=== PATIENT | female | born 1930 | race Caucasian/White ===

== ENCOUNTER 2016-07-08 07:26 | Emergency (ER) | payer MEDICARE, BC ==
[2012-12-16 14:40] VITALS: BMI 30.2
[~2016-07-08 07:26] MED LIST: ASPIRIN EC81 MG PO; DOK250 MG PO; PERCOCET 5/3251 TA1 PO; PRILOSEC20 MG
[2016-07-08 09:09] LABS: BASOPHILS 0.5 % (0.0-2.0); EOSINOPHILS 2.9 % (0-7); HEMATOCRIT 39.8 % (36.0-48.0); HEMOGLOBIN 13.1 g/dL (12-16); IMMATURE GRANULOCYTES 0.2 % (0-5); LYMPHOCYTES 21.4 % (15-50); MCH 30.8 pg (26.0-34.0); MCHC 32.9 g/dL (31.0-37.0); MCV 93.4 fL (80.0-100.0); MEAN PLATELET VOLUME 11.2 fL (7.4-10.4); MONOCYTES 7.3 % (2-11); NEUTROPHILS 67.7 % (40-80); RBC 4.26 10x6/uL (4.00-5.40); RDW 13.9 % (11.5-14.5); WBC 6.6 10x3/uL (4.8-10.8)
[2016-07-08 09:27] LABS: ALBUMIN 3.5 g/dL (3.4-5.0); ANION GAP 12.5 mmol/L (8-16); BILIRUBIN - TOTAL 0.29 mg/dL (0.2-1.3); CALCIUM 9.3 mg/dL (8.5-10.1); POTASSIUM - SERUM 4.5 mmol/L (3.5-5.1); PROTEIN - SERUM 7.2 g/dL (6.4-8.2)
[2016-07-08 09:32] LABS: PLATELET COUNT 156 10x3/uL (130-400)
== END 2016-07-08 11:51 | disposition home or self-care (01) ==
LOC: D.ER 07:26
PROVIDERS: Emergency Medicine
DX: I74.8 Embolism and thrombosis of other arteries (principal)

== ENCOUNTER → 2016-07-12 08:54 | Outpatient (CLI) | payer MEDICARE, BC ==
[2012-12-16 14:40] VITALS: BMI 30.2
== END | disposition home or self-care (01) ==
LOC: D.CT 08:54
DX: I73.9 Peripheral vascular disease, unspecified (principal)

== ENCOUNTER → 2016-07-15 14:36 | Outpatient (CLI) | payer MEDICARE, BC ==
[2012-12-16 14:40] VITALS: BMI 30.2
== END | disposition home or self-care (01) ==
LOC: D.CT 14:36
DX: R91.8 Other nonspecific abnormal finding of lung field (principal)

== ENCOUNTER 2016-07-23 07:21 | Outpatient (CLI) | payer MEDICARE, BC ==
[~2016-07-23] VITALS: Ht 157.5 cm; Wt 77.3 kg
[2016-07-23 08:26] LABS: BASOPHILS 0.5 % (0-2); EOSINOPHILS 3.3 % (0-7); HEMATOCRIT 41.3 % (36.0-48.0); HEMOGLOBIN 13.5 g/dL (12-16); IMMATURE GRANULOCYTES 0.2 % (0-5); LYMPHOCYTES 23.6 % (15-50); MCH 30.5 pg (26.0-34.0); MCHC 32.7 g/dL (31.0-37.0); MCV 93.2 fL (80.0-100.0); MEAN PLATELET VOLUME 11.5 fL (7.4-10.4); NEUTROPHILS 62.4 % (40-80); PLATELET COUNT 197 10x3/uL (130-400); RBC 4.43 10x6/uL (4.00-5.40); RDW 13.9 % (11.5-14.5)
[2016-07-23 08:38] LABS: APTT 24.8 SECONDS (22.8-39.4); INR 0.96 (0.85-1.17); PROTIME 12.7 SECONDS (11.6-15.0)
[2016-07-23 08:42] VITALS: BP 145/76; Ht 157.5 cm; Wt 77.3 kg
[2016-07-23 08:43] LABS: ANION GAP 11.6 mmol/L (8-16); CALCIUM 9.9 mg/dL (8.5-10.1); CARBON DIOXIDE 28.5 mmol/L (21.0-32.0); POTASSIUM - SERUM 4.1 mmol/L (3.5-5.1)
[2016-07-23] MEDS ORDERED: BUMETANIDE0.5 MG PO (08:52)
[2016-07-23] MEDS ORDERED: NEURONTIN 300300 MG PO (08:54)
[2016-07-23] MEDS ORDERED: MOBIC7.5 MG PO (08:56)
--- NOTE | 2016-07-23 12:34 | NUR ---
1200 RETURNED TO 2509 BY BED, SEE POST PROCEDURE VITAL SIGNS CHECKLIST FOR VITAL SIGNS.
--- NOTE | 2016-07-23 14:19 | NUR ---
1350 CXR DONE 1410 CXR REPORT GIVEN NO PNEUMOTHORAX, ISMAEL ROUNDS, GIVES POST INSTRUCTIONS, OKAYS RELEASE AT 1500.
== END 2016-07-23 15:15 | disposition home or self-care (01) ==
LOC: D.OPS 07:21
PROVIDERS: General Practice
DX: C34.31 Malignant neoplasm of lower lobe, right bronchus or lung (principal)

== ENCOUNTER → 2016-08-15 10:49 | Outpatient (CLI) | payer MEDICARE, BC ==
[2016-07-23 08:42] VITALS: BMI 31.1
[~2016-08-15 10:49] MED LIST changes: +BUMETANIDE0.5 MG PO; +MOBIC7.5 MG PO; +NEURONTIN 300300 MG PO
== END | disposition home or self-care (01) ==
LOC: D.RT 10:49
DX: J44.9 Chronic obstructive pulmonary disease, unspecified (principal)

== ENCOUNTER 2016-09-17 05:00 | Inpatient (IN) | payer MEDICARE, BC ==
--- NOTE | 2016-09-14 12:08 | HP ---
PATIENT: HARVINDER HALL MEDICAL RECORD: [id number] ACCOUNT: [id number] LOCATION:[facility] : [birth year] ADMISSION DATE: 09/17/16 HISTORY AND PHYSICAL EXAMINATION HARVINDER Saenz (86yo, F) ID# [id number]. Date/Time09/11/2016 01:92LHRRD30/18/192[facility] Dept.[facility]_[place] [facility] ClinicProviderEDNATHAN SINCLAIR MDInsuranceMed Primary: [place] (MEDICARE) Insurance # : [id number] PCP : LYNDSEY BARTON Referring Provider Name : LYNDSEY BARTON Employer Name : RETIRED Med Secondary: [place] (MEDICARE SUPPLEMENT) Insurance # : [id number] Policy/Group # : [id number] PCP : LYNDSEY BARTON Referring Provider Name : LYNDSEY BARTON Employer Name : RETIRED Prescription: ARGSDIR - Member is eligible. Chief Complaint Followup: Mass of right lower lobe of lung discuss surgery options Patient's Care Team Primary Care Provider (): LYNDSEY BARTON: [address], [place] [address], , Referring Provider (): LYNDSEY BARTON: [address], [place] [address], , Patient's Pharmacies [facility] (ERX): [phone] [place] [place] [address], , Vitals BP:150/70 sitting R arm 09/11/2016 12:39 pmHR:100R/R 09/11/2016 12:39 pmHt:5 ft 2 in 09/11/2016 12:36 pmWt:170 lbs 09/11/2016 12:38 pmBMI:31.1 09/11/2016 12:38 pmAllergies Allergies not reviewed (last reviewed 08/12/2016) NKDAMedications Medications not reviewed (last reviewed 08/12/2016) Aspir-Low 81 mg tablet,delayed release Take 1 tablet(s) every day by oral route.12/29/12 enteredPaola Sextonbenzonatate 100 mg /18/16 [facility] Westemazebumetanide 0.5 mg osdtzi57/05/17 filledB[facility] WestemazecefUROXime axetil 500 mg /18/16 filledB[facility] WestemazeFerretts 325 mg (106 mg iron) /27/14 filledB[facility] Westemazegabapentin 300 mg ftohnrm97/05/17 filledB[facility] Westemazelisinopril 10 mg dphpki80/20/14 filledB[facility] Westemazemeloxicam 7.5 mg yeyphb30/05/17 filledB[facility] WestemazetraMADol 50 mg xkapgv73/23/16 filledB[facility] WestemazeProblems Reviewed Problems Mass of right lower lobe of lung - Onset: 07/16/2016 Closed fracture of proximal humerus, anatomical neck Closed fracture proximal humerus, greater tuberosity Atherosclerosis of arteries of the extremities - Onset: 07/09/2016 Family History Discussed Family History HISTORY AND PHYSICAL [id number] HARVINDER HALL Non-contributory.Mother- Malignant tumor of colonSister- Malignant neoplastic diseaseSocial History Discussed Social History Cardiology Smoking Status: Former smoker Non-smoker High blood pressure: Y Alcohol intake: None Occupation: Retired Marital status: Is blood transfusion acceptable in an emergency?: Y Surgical History Surgical History not reviewed (last reviewed 08/12/2016) Other - choleystectomy Total shoulder replacement - 12/16/2012 none [employer] History (not configured) Past Medical History Discussed Past Medical History Cancer: Y - RLL NSCLC Cold feet and legs: Y GERD: Y Pain in legs when walking: Y Peripheral Vascular Disease (PVD): Y Swelling of Ankles, Feet or Hands: Y Documents for Discussion N/A Screening None recorded. HPI Dyspnea Reported by patient. Quality: dyspnea Severity: mild Onset/Timing: daily Context: with activity Associated Symptoms: coughing up sputum squamous cell carcinoma right lower lobe ROS Patient reports dry eyes but reports no irritation and no vision change. She reports nose/sinus problems but reports no frequent nosebleeds. She reports shortness of breath when walking and shortness of breath when lying down but reports no chest pain, no arm pain on exertion, no palpitations, and no known heart murmur. She reports shortness of breath but reports no cough, no wheezing, and no coughing up blood. She reports urinary loss of control but reports no d ifficulty urinating, no hematuria, and no increased frequency. She reports no fever, no night sweats, no significant weight gain, no significant weight loss, and no exercise intolerance. She reports no difficulty hearing and no ear pain. She reports no so r e throat, no bleeding gums, no snoring, no dry mouth, no mouth ulcers, no oral abnormalities, and no teeth problems. She reports no jugular vein distension and no swollen glands. She reports no abdominal pain, no vomiting, normal appetite, no diarrhea, no t vomiting blood, no nausea, and no constipation. She reports no HISTORY AND PHYSICAL [id number] HALL,HARVINDER muscle aches, no muscle weakness, no arthralgias/joint pain, no back pain, and no swelling in the extremities. She reports no abnormal mole, no jaundice, and no rashes. She reports no loss of consciousness, no weakness, no numbness, no seizures, no dizziness, and no headaches. She reports no depression, no sleep disturbances, feeling safe in relationship, and no alcohol abuse. She reports no fatigue. She reports no swollen glands and no bruisi ng. She reports no runny nose, no sinus pressure, no itching, no hives, and no frequent sneezing. ROS as noted in the HPI Physical Exam Patient is an 86-year-old female. Constitutional: General Appearance well nourished and developed and healthy-appearing. Level of Distress NAD. Ambulation ambulating normally. Cardiovascular: Apical Impulse not displaced or no thrill. Heart Auscultation normal s1 and s2; no murmurs, rubs, or gallops; and RRR. Arterial Pulses no abdominal aorta bruits, femoral bruits, or popliteal bruits; popliteal diminished (on the right) and dorsalis pedis diminished (on the right); and 2+ bilateral, carotid 2+ bilateral, and femoral 2+ bilateral. Edema no edema or varicosities. Lungs: Repiratory Effort no dyspnea. Percussion no hyperresonance or dullness or flatness. Auscultation no wheezing, rhonchi, or rales / crackles and breathing sounds normal, good air movement, and CTA except as noted. Abdomen: Bowl Sounds normal. Inspection and Palpation no tenderness, guarding, cathleen s, or rebound tenderness and soft and non-distended. Liver non-tender and no hepatomegaly. Spleen non-tender and no splenomegaly. Hernia none palpable. Musculoskeletal System: Gait And Stance normal gait and stance and wide-based. Digits and Nails normal nails and no cyanosis. Joints, Bones, and Muscles limited ROM. Neurologic: Cranial Nerves grossly intact. Reflexes DTRs 2+ bilaterally throughout. Sensation abnormal (numbness in the forefeet bilaterally Numbness in the fingers both hands all digits ). Lymph Nodes: Lymph Nodes no cervical LAD, supraclavicular LAD, axillary LAD, or inguinal LAD. Eyes: Lids and Conjunctivae no discharge or pallor and non-injected. Pupils PERRLA. Cornea grossly intact. EOM EOMI. Lens clear. Sclera non-icteric. Neck: Neck no masses, enlarged lymph nodes, or carotid bruits and supple and trachea midline. Thyroid no enlargement or nodules and non-tender. Skin: Inspection and Palpation no rash, lesions, ulcers, jaundice, or abnormal nevi. Assessment / Plan non-small cell carcinoma right lower lobe 1. Mass of right lower lobe of lung R91.8: Other nonspecific abnormal finding of lung field 2. Atherosclerosis of arteries of the extremities I70.209: Unspecified atherosclerosis of [place] arteries of extremities, unspecified extremity HISTORY AND PHYSICAL [id number] ISABELHARVINDER Discussion Notes Ms. Hall has seen Dr. Patel, Dr. cheng, Dr. Paige. She would like her tumor resected and understands the high risk of the procedure. I tried to have her considering chemotherapy however she is adamant and wants to resecte the tumor in spite of the risk.She does not want mediastinoscopy. I have discussed her disease process with her and her family in detail as well as the alternative methods of treatment. We discussed right lower lobe resection and the expected benefits and risks which include bleeding, infection, stroke, loss of limb, and , and the imponderables. She understands all of the above and wishes to proceed with surgical resection of her right lung carcinoma. We will call for scheduled surgery ARON SINCLAIR MD at 1208 CC: [id number] DICTATION DATE: 09/11/16 1330 SECURITY TECHNICIAN: MARCOS 09/11/16 1418 PRE IN [facility] [address] [id number]
[2016-09-16 10:50] LABS: HEMATOCRIT 39.1 % (36.0-48.0); HEMOGLOBIN 12.6 g/dL (12-16); MCH 30.5 pg (26.0-34.0); MCHC 32.2 g/dL (31.0-37.0); MCV 94.7 fL (80.0-100.0); MEAN PLATELET VOLUME 11.3 fL (7.4-10.4); RBC 4.13 10x6/uL (4.00-5.40); RDW 14.2 % (11.5-14.5); WBC 6.2 10x3/uL (4.8-10.8)
[2016-09-16 10:57] LABS: APPEARANCE CLEAR (CLEAR); BILIRUBIN NEGATIVE (NEGATIVE); COLOR YELLOW (YELLOW); GLUCOSE NEGATIVE (NEGATIVE); KETONE NEGATIVE (NEGATIVE); LEUKOCYTE ESTERASE NEGATIVE (NEGATIVE); NITRITE NEGATIVE (NEGATIVE); PROTEIN NEGATIVE (NEGATIVE); SPECIFIC GRAVITY 1.015 (1.005-1.020); UROBILINOGEN NORMAL (NORMAL)
[2016-09-16 10:58] LABS: BACTERIA FEW /hpf (NONE SEEN); EPITHELIAL CELLS 0-5 /hpf (0-5); MUCUS <1+ /lpf (NONE SEEN); RED CELLS - URINE 0-5 /hpf (0-5); WHITE CELLS - URINE 0-5 /hpf (0-5)
[2016-09-16 11:01] LABS: APTT 23.2 SECONDS (22.8-39.4); INR 0.93 (0.85-1.17); PROTIME 12.3 SECONDS (11.6-15.0)
[2016-09-16 11:07] LABS: ALBUMIN 3.5 g/dL (3.4-5.0); ANION GAP 10.3 mmol/L (8-16); BILIRUBIN - TOTAL 0.29 mg/dL (0.2-1.3); CALCIUM 9.5 mg/dL (8.5-10.1); CARBON DIOXIDE 28.7 mmol/L (21.0-32.0); PROTEIN - SERUM 7.1 g/dL (6.4-8.2)
[2016-09-17] VITALS (49 sets, daily range): BP systolic 97–143; BP diastolic 42–95; BMI 30.4
[~2016-09-17] VITALS: Ht 157.5 cm; Wt 85.6 kg
--- NOTE | 2016-09-17 12:15 | NUR ---
REC'D TO CVO2 FROM OR. ATTACHED TO ICU EQUIPMENT UPON ARRIVAL. 10L O2 VIA SIMPLE MASK, O2 SAT 98%. RIGHT DOUBLE LUMEN SUBCLAVIAN IN PLACE WITH GTTS INFUSING, SEE IV DRIPS FLOWSHEET. LEFT RADIAL ART LINE IN PLACE WITH WRIST PROTECTOR, ALL LINES FLUSHED AT ZEROED. FENTANYL/BUPIVICAINE EPIDURAL TO MID UPPER BACK RUNNIN AT 7ML/HR. RIGHT LATERAL CHEST INCISION NOTED, DRSG CDI. RIGHT LATER CHEST TUBES X2 WITH BLOODY DRAINAGE. BOTH ANTERIOR AND POSTERIOR CHEST TUBES NOTED TO HAVE LEAKS. CRITICORE BILLINGSLEY CATHETER IN PLACE DRAINING CLEAR YELLOW URINE. SCDS IN PLACE PER ORDERS. VITAL SIGNS STABLE. WILL MONITOR CLOSELY.
--- NOTE | 2016-09-17 12:45 | NUR ---
FAMILY AT BEDSIDE. UPDATE GIVEN PER DR. SINCLAIR.
--- NOTE | 2016-09-17 14:06 | NUR ---
RESTING QUIETLY IN BED. 6L NC, NO RESP DISTRESS NOTED. NO C/O PAIN AT THIS TIME. WILL CONTINUE TO MONITOR CLOSELY.
--- NOTE | 2016-09-17 19:00 | NUR ---
rEPORT RECEIVED AND ASSESSMENT COMPLETED. SEE FLOWSHEET FOR FULL DETAILS. PT IS A RIGHT MIDDLE AND LOWER LOBECTOMY. ANTERIOR AND POSTERIOR CHEST TUBES PRESENT IN RIGHT LATERAL CHEST. LEAK PRESENT IN BOTH TUBES. NO OUTPUT SINCE LAST CHECKED BY DAY SHIFT. BILLINGSLEY IN PLACE. TEMP 36.0 DEGREES AT THIS TIME. BEAR HUGGER APPLIED. LUNG SOUNDS CTA IN UPPER LEFT LOBE, AND SUCTION FROM CHEST TUBES HEARD IN RIGHT UPPER. DIMMINISHED IN LEFT LOWER. PT IS ON A DOPAMINE DRIP SET TO BE WEANED OFF. B/P CURRENTLY 110/52 AND HR IS 72. VSS. WILL CONTINUE TO MONITOR THROUGHOUT SHIFT
--- NOTE | 2016-09-17 19:00 | NUR ---
REPORT RECEIVED AND ASSESSMENT COMPLETED. PT IS A RIGHT MIDDLE AND LOWER LOBECTOMY. ANTERIOR AND POSTERIOR CHEST TUBES PRESENT ON RIGHT LATERAL CHEST. LEAK PRESENT IN BOTH TUBES. NO OUTPUT FOR [address] TEMP 36.0. BEAR HUGGER APPLIED. AT THIS TIME. LUNG SOUNDS CTA IN UPPER LOBES. DIMINISHED IN LEFT LOWER. SUCTION FROM CHEST TUBES HEARD IN RIGHT LOBES. PT IS ON A DOPAMINE DRIP SET TO BE WEANED OFF. B/P CURRENTLY 110/52, AND HR IS 73. ALL VITAL SIGNS STABLE. WILL CONTINUE TO MONITOR THROUGHOUT SHIFT.
--- NOTE | 2016-09-17 21:00 | NUR ---
PT TEMP 36.7 AT THIS TIME. NO OTHER CHANGES IN STATUS TO REPORT. PT STILL DENIES ANY DISCOMFORT FROM PROCEDURE. VSS. WILL MONITOR
--- NOTE | 2016-09-17 23:00 | NUR ---
REASSESSMENT COMPLETED. SEE FLOWSHEET FOR FULL DETAILS. PT HAS BEEN STARTED ON A DHIRAJ DRIP AND IT HAS BEEN TITRATED DOWN TO 0.4 MCG/KG/MIN. B/P NOW AT 104/42. WILL CONTINUE TO MONITOR AND MAKE ADJUSTMENTS NEEDED. TEMP NOW AT 37.2. BEAR HUGGER TURNED OFF AT THIS TIME.
[2016-09-18] VITALS (96 sets, daily range): BP systolic 95–148; BP diastolic 33–80; Ht 157.5 cm; Wt 85.6 kg
--- NOTE | 2016-09-18 01:00 | NUR ---
NO CHANGES IN STATUS AT THIS TIME. VSS. PT SLEEPING IN ROOM BED IN LOW POSITION. CALL LIGHT IN REACH. WILL CONTINUE TO MONITOR.
--- NOTE | 2016-09-18 03:00 | NUR ---
REASSESSMENT COMPLETED. SEE FLOWSHEET FOR FULL DETAILS. DOPAMINE DRIP HAS BEEN WEANED OFF SUCCESSFULLY; HOWEVER, DHIRAJ DRIP STILL RUNNING AT 0.5 MCG/KG/MIN. B/P IS 108/48. WILL CONTINUE TO MONITOR.
--- NOTE | 2016-09-18 04:56 | NUR ---
PT STATES THAT SHE DOES NOT REMEMBER UNDERGOING HER OPERATION AT THIS TIME. NO OTHER SIGNS OF CONFUSION PRESENT.
[2016-09-18 06:26] LABS: ANION GAP 12.6 mmol/L (8-16); BILIRUBIN - TOTAL 0.4 mg/dL (0.2-1.3); CALCIUM 8.2 mg/dL (8.5-10.1); CARBON DIOXIDE 24.8 mmol/L (21.0-32.0); CREATININE - SERUM 0.8 mg/dL (0.6-1.3); POTASSIUM - SERUM 4.4 mmol/L (3.5-5.1); PROTEIN - SERUM 6.1 g/dL (6.4-8.2)
[2016-09-18 06:30] LABS: ALBUMIN 2.6 g/dL (3.4-5.0)
--- NOTE | 2016-09-18 07:00 | NUR ---
ASSESSMENT COMPLETE PER FLOW SHEET. RESTING IN BED. VSS. NO NEEDS VOICED.
[2016-09-18 07:55] LABS: HEMATOCRIT 33.8 % (36.0-48.0); HEMOGLOBIN 11.1 g/dL (12-16); MCH 30.9 pg (26.0-34.0); MCHC 32.8 g/dL (31.0-37.0); MCV 94.2 fL (80.0-100.0); RBC 3.59 10x6/uL (4.00-5.40); RDW 14.4 % (11.5-14.5); WBC 15.3 10x3/uL (4.8-10.8)
--- NOTE | 2016-09-18 08:05 | NUR ---
DR. SINCLAIR AT BEDSIDE. NO NEW ORDERS REC'D.
--- NOTE | 2016-09-18 09:36 | NUR ---
AM MEDICATIONS GIVEN PER MAR WITHOUT PROBLEM. FAMILY AT BEDSIDE. NO NEEDS VOICED. NO C/O PAIN. WILL CONTINUE TO MONITOR.
--- NOTE | 2016-09-18 11:00 | NUR ---
REASSESSMENT COMPLETE PER FLOW SHEET. NO CHANGES NOTED.
--- NOTE | 2016-09-18 12:20 | NUR ---
* Is the patient Alert and Oriented? Yes 0 * How many steps to enter\exit or inside your home? 1 0 * PCP Dr. Mitul Irving 0 * Pharmacy [facility] on [address] * Preadmission Environment Home Alone 0 * ADLs Independent 0 * List name and contact numbers for known caregivers / representatives who currently or will assist patient after discharge: Sister Modesta Dobson [phone] 0 * Can the patient safely return to the preadmission environment? Yes 0 * Has this patient been hospitalized within the prior 30 days at any hospital? No 09/18/2016 12:20 DCP: Discharge Planning Patient Name: HARVINDER HALL Admission Status: Elective Accout number: [id number] Admission Date: 09-17-2016 : 1928 Admission Diagnosis: Attending: WENDI Current LOS: 1 Anticipated DC Date: 09-24-2016 Planned Disposition: Home Primary Insurance: MEDICARE A & B Discharge Planning Comments: CM met with patient to assess dc plans/needs. Patient states she lives alone and is independent with all ADL's & AIDL's. She still drives on occasion. She denies using any assistive devices for mobility and denies ever having home health services. At discharge, she plans to return home. She does not think she will need any services at DC at this time. CM will follow and assist with any DC needs. Public Health Administrator: Amy Brock
--- NOTE | 2016-09-18 15:00 | NUR ---
REASSESSMENT COMPLETE PER FLOW SHEET. NO CHANGES NOTED. VSS.
--- NOTE | 2016-09-18 17:20 | NUR ---
SYSTOLIC BP IN THE 80s. ANESTHESIA CALLED TO LOWER EPIDURAL RATE.
--- NOTE | 2016-09-18 17:45 | NUR ---
A. WILFREDO WITH ANESTHESIA AT BEDSIDE. EPIDURAL RATE DECREASED TO 4ML/HR.
--- NOTE | 2016-09-18 18:00 | NUR ---
BATH GIVEN AND LINENS CHANGED. REPOSITIONED IN BED FOR COMFORT.
--- NOTE | 2016-09-18 19:00 | NUR ---
report received and assessment completed. see flowsheet for full details. pt epidural rate was decreased by anesthesia during the day shift. pt denes all pain at this time. pt on 30 ml plasmalyte, and 0.5 mcg/kg/min of jyotsna in right subclavian. b/p 124/58 at this time. no other changes from previous shift. vss. will continue to monitor throughout shift.
--- NOTE | 2016-09-18 21:00 | NUR ---
NO CHANGES IN STATUS AT THIS TIME. 2100 MEDS GIVEN. WILL CONTINUE TO MONITOR.
--- NOTE | 2016-09-18 23:30 | NUR ---
REASSESSMENT COMPLETED. PT HAS GONE INTO A FIB. EKG AND ABG DRAWN WELL SERUM POTASSIUM. EKG SHOWED ATRIAL FLUTTER, AND A FIB. ABG SHOWED POTASSIUM AT 3.2 STAT SERUM POTASSIUM SHOWED 3.4. DR SINCLAIR CONTACTED. NEW ORDER RECIEVED FOR POTASSIUM RIDER. 40 MEQ OF 3 HOURS WITH RECHECK AND REPEAT ORDER IS BELOW 4.2. SEE FLOWSHEET FOR FULL ASSESSMENT DETAILS. PT HAS NOW GONE BACK INTO NORMAL SINUS. WILL CONTACT DR SINCLAIR SHOULD ANY NEW ARRHYTHMIAS OCCUR INSTRUCTED.
[2016-09-19] VITALS (49 sets, daily range): BP systolic 90–143; BP diastolic 36–92
--- NOTE | 2016-09-19 01:28 | NUR ---
POTASSIUM CURRENTLY INFUSING. DHIRAJ TITRATED DOWN TO 0.4 MCG/KG/MIN. PT IS STILL IN SINUS RHYTHM AT THIS TIME. WILL CONTINUE TO MONITOR.
--- NOTE | 2016-09-19 03:00 | NUR ---
REASSESSMENT COMPLETED. SEE FLOWSHEET FOR FULL DETAILS. PT NO LONGER IN A FIB OR FLUTTER. RESTING IN ROOM VSS. WILL CONTINUE TO MONITOR.
--- NOTE | 2016-09-19 05:00 | NUR ---
POTASSIUM RECHECK 4.4. NO ADDITIONAL INTERVENTION REQUIRED PER ORDERS. WILL MONITOR
[2016-09-19 05:51] LABS: BASOPHILS 0.1 % (0-2); EOSINOPHILS 0.1 % (0-7); HEMOGLOBIN 10.5 g/dL (12-16); IMMATURE GRANULOCYTES 0.4 % (0-5); LYMPHOCYTES 7.7 % (15-50); MCH 30.4 pg (26.0-34.0); MCHC 31.8 g/dL (31.0-37.0); MCV 95.7 fL (80.0-100.0); MEAN PLATELET VOLUME 11.7 fL (7.4-10.4); MONOCYTES 10.4 % (2-11); NEUTROPHILS 81.3 % (40-80); RBC 3.45 10x6/uL (4.00-5.40); RDW 15.1 % (11.5-14.5); WBC 14.3 10x3/uL (4.8-10.8)
[2016-09-19 05:52] LABS: PLATELET COUNT 177 10x3/uL (130-400)
--- NOTE | 2016-09-19 06:00 | NUR ---
PT HAS GONE BACK INTO FLUTTER. ABG DRAWN POTASSIUM WAS 3.8. SERUM POTASSIUM DRAWN AND RESULTED 4.2. EKG SHOWED ATRIAL FLUTTER AT A RATE OF 81. CALLED DR SINCLAIR. NEW ORDER FOR 12.5MG LOPRESSOR NOW AND Q12H SUBSEQUENT. WILL ADMINISTER ORDERED.
[2016-09-19 06:26] LABS: ALBUMIN 2.3 g/dL (3.4-5.0); ALKALINE PHOSPHATASE 50 U/L (46-116); BILIRUBIN - TOTAL 0.37 mg/dL (0.2-1.3); CALC OSMOLALITY 290 mosm/kg (275-300); CALCIUM 8.3 mg/dL (8.5-10.1); CARBON DIOXIDE 27.7 mmol/L (21.0-32.0); CHLORIDE - SERUM 111 mmol/L (98-107); CREATININE - SERUM 0.7 mg/dL (0.6-1.3); GLUCOSE 125 mg/dL (74-106); POTASSIUM - SERUM 4.2 mmol/L (3.5-5.1); PROTEIN - SERUM 5.8 g/dL (6.4-8.2); SODIUM 144 mmol/L (136-145); UREA NITROGEN 20 mg/dL (7-18); eGFR NON AFRICAN AMERICAN 83 mL/min (90-120)
[2016-09-19 06:27] LABS: ALT (SGPT) 37 U/L (10-68)
--- NOTE | 2016-09-19 07:15 | NUR ---
RECEIVED PT FOR CARE. PT RESTING IN BED WITH EYES OPEN. CALL LIGHT WITHIN REACH. VSS AT THIS TIME.
--- NOTE | 2016-09-19 10:01 | NUR ---
Nutrition follow-up: Diet advanced to regular Labs reviewed RDN following.
--- NOTE | 2016-09-19 11:30 | NUR ---
LEFT RADIAL A-LINE D/C'D WITH CATH TIP INTACT. PT TOLERATED WELL. VSS AT THIS TIME. CALL LIGHT WITHIN REACH.
--- NOTE | 2016-09-19 12:30 | NUR ---
NOTIFIED VALENTIN EMMANUEL RN OF PT'S DECREASED URINE OUTPUT. NO NEW ORDERS RECEIVED.
--- NOTE | 2016-09-19 14:00 | NUR ---
PT HAD COMPLETE BATH AND LINEN CHANGE. TOLERATED WELL. DRESSING TO RIGHT CHEST TUBES CHANGED. NO S/S OF INFECTION NOTED. PT REPOSITIONED TO RIGHT SIDE FOR COMFORT. CALL LIGHT WITHIN REACH.
--- NOTE | 2016-09-19 16:30 | NUR ---
DR. SINCLAIR AT BEDSIDE. REVEIWED PATHOLOGY RESULTS WITH PT. PT GIVEN COPY OF RESULTS BY DR. SINCLAIR.
--- NOTE | 2016-09-19 17:35 | NUR ---
NOTIFIED DR. SINCLAIR OF PT HAVING SMALL RUNS OF A-FIB. RATE UP TO 118. ORDERS RECEIVED.
--- NOTE | 2016-09-19 19:20 | NUR ---
REPORT RECIEVED. ASSESSMENT COMPLETE PER FLOW SHEET. REFER FOR FINDINGS. O2 VIA NC 2L O2 SAT 96% RR 22 NON LABORED. IS ENCOURAGED, STRONG COUGH PRESENT REPOSITIONED ON L SIDE. NEEDS MET.
--- NOTE | 2016-09-19 21:10 | NUR ---
NO NEW CHANGES. VSS. REPOSITIONED ON R SIDE. IS ENCOURAGED. COUGH/DEEP BREATH ENCOURAGED. NEEDS MET.
--- NOTE | 2016-09-19 23:20 | NUR ---
REASSESSMENT COMPLETE PER FLOW SHEET. VSS. NO NEW CHANGES. WILL CONTINUE TO MONITOR.
[2016-09-20] VITALS (26 sets, daily range): BP systolic 90–153; BP diastolic 41–85
--- NOTE | 2016-09-20 01:50 | NUR ---
REPOSITIONED ON R SIDE. IS ENCOURAGED. VSS. NO NEW CHANGES WILL CONTINUE TO MONITOR
[2016-09-20 06:43] LABS: BASOPHILS 0.1 % (0-2); EOSINOPHILS 1.1 % (0-7); HEMATOCRIT 30.2 % (36.0-48.0); HEMOGLOBIN 9.5 g/dL (12-16); IMMATURE GRANULOCYTES 0.2 % (0-5); LYMPHOCYTES 11.8 % (15-50); MCH 30.5 pg (26.0-34.0); MCHC 31.5 g/dL (31.0-37.0); MCV 97.1 fL (80.0-100.0); MEAN PLATELET VOLUME 11.7 fL (7.4-10.4); MONOCYTES 9.5 % (2-11); NEUTROPHILS 77.3 % (40-80); PLATELET COUNT 145 10x3/uL (130-400); RBC 3.11 10x6/uL (4.00-5.40); RDW 15.4 % (11.5-14.5)
[2016-09-20 06:51] LABS: WBC 10.1 10x3/uL (4.8-10.8)
[2016-09-20 07:00] LABS: % SATURATION 9 % (15-55); IRON 19 ug/dl (35-150); TOTAL IRON BIND CAPACITY 197 ug/dl (260-445); UNSAT IRON BIND CAPACITY 178 ug/dl (150-375)
[2016-09-20 07:14] LABS: ALKALINE PHOSPHATASE 55 U/L (46-116); ALT (SGPT) 38 U/L (10-68); CALC OSMOLALITY 284 mosm/kg (275-300); CALCIUM 8.1 mg/dL (8.5-10.1); CARBON DIOXIDE 28.9 mmol/L (21.0-32.0); CHLORIDE - SERUM 109 mmol/L (98-107); CREATININE - SERUM 0.7 mg/dL (0.6-1.3); FERRITIN 97 ng/mL (3-244); GLUCOSE 103 mg/dL (74-106); POTASSIUM - SERUM 4.5 mmol/L (3.5-5.1); PROTEIN - SERUM 5.4 g/dL (6.4-8.2); SODIUM 141 mmol/L (136-145); UREA NITROGEN 25 mg/dL (7-18); eGFR NON AFRICAN AMERICAN 83 mL/min (90-120)
--- NOTE | 2016-09-20 08:00 | NUR ---
DR. SINCLAIR AT BEDSIDE. UPDATED ON PT'S STATUS. CHEST TUBES OFF SUCTION. FOUND TO BE TURNED OFF AT THE HEAD OF BED. TURNED BACK ON TO 20CM SUCTION. SMALL AIR LEAK NOTED IN ANTERIOR CHEST TUBE. DR. SINCLAIR AWARE. WILL CONTINUE TO MONITOR.
--- NOTE | 2016-09-20 09:59 | NUR ---
DR. ESPINOZA WITH ANESTHESIA AT BEDSIDE. EPIDURAL D/C'D. TOLERATED WELL.
--- NOTE | 2016-09-20 11:05 | NUR ---
RESP THERAPY AT BEDSIDE. PT PREPPED FOR BRONCH. MORPHINE AND PHENERGAN GIVEN PER ORDERS.
--- NOTE | 2016-09-20 11:40 | NUR ---
DR. HERNÁNDEZ AT BEDSIDE. BRONCHOSCOPY COMPLETED. PT TOLERATED WELL. RESTING IN BED WITH EYES CLOSED. SNORING.
--- NOTE | 2016-09-20 12:05 | NUR ---
RADIOLOGY AT BEDSIDE FOR POST BRONCH CHEST X-RAY
--- NOTE | 2016-09-20 13:30 | NUR ---
PHYSICAL THERAPY AT BEDSIDE. PT UP TO CHAIR. CALL LIGHT WITHIN REACH. CHEST TUBES X2 TO 20CM SUCTION. SMALL AIR LEAK NOTED IN ANTERIOR TUBE.
--- NOTE | 2016-09-20 15:06 | NUR ---
PHYSICAL THERAPY AT BEDSIDE. PT ASSISTED BACK TO BED. LINENS CHANGED. TOLERATED WELL. PAIN PILL GIVEN. PT C/O RIGHT LAT CHEST INCISION PAIN AND RIGHT SHOULDER PAIN. WILL MONITOR. VSS AT THIS TIME.
--- NOTE | 2016-09-20 15:20 | NUR ---
DR. SINCLAIR AT BEDSIDE. RIGHT POSTERIOR CHEST TUBE D/C'D BY DR. SINCLAIR. PT TOLERATED WELL. DRESSINGS TO CHEST TUBE CHANGED. NO AIR LEAK NOTED AT THIS TIME.
--- NOTE | 2016-09-20 18:00 | NUR ---
PT REPOSITIONED IN BED TO RIGHT SIDE. WEAK COUGH NOTED. PT STILL GROGGY AND SLEEPY FROM BRONCHOSCOPY MEDS TODAY. FOLLOWING COMMANDS, BUT DOES FALL ASLEEP WHEN NOT TALKING. VSS AT THIS TIME.
--- NOTE | 2016-09-20 19:15 | NUR ---
RECEIVED CARE OF PT, ASSESSMENT PER FLOWSHEET. PT ALERT AND ORIENTED, ON 2L O2 VIA NC, HR UCAF AT A RATE OF 115, BREATH SOUNDS DIMINISHED BILATERALLY, RT LAT INCISION GERMAN, NO S/S OF INFECTION NOTED, RT CT TO 20 OF SXN, SEROUS DRAINAGE NOTED, SMALL INTERMITTENT AIR LEAK-MD AWARE. PPP, PT POSITIONED FOR COMFORT, WILL MONITOR.
--- NOTE | 2016-09-20 20:58 | NUR ---
HS MEDS GIVEN PER MD ORDER, PT PULLING 250-300 ON IS, WEAK COUGH NOTED. WILL CONT TO ENCOURAGE.
--- NOTE | 2016-09-20 23:00 | NUR ---
REASSESSMENT PER FLOWSHEET-SEE FOR DETAILS. PT POSITIONED UP IN BED SUPPORTED WITH PILLOWS, PULLING 250-300 ON IS DESPITE ENCOURAGEMENT, NO SPUTUM EXPECTORATED WITH COUGH.
[2016-09-21] VITALS (21 sets, daily range): BP systolic 126–176; BP diastolic 43–97
--- NOTE | 2016-09-21 01:00 | NUR ---
PT RESTING IN BED WITH EYES CLOSED, VSS, CONT TO MONITOR.
--- NOTE | 2016-09-21 03:00 | NUR ---
REASSESSMENT PER FLOWSHEET, PT POSITIONED FOR COMFORT, IS AND GOOD COUGH ENCOURAGED, PULLING AROUND 250-300.
--- NOTE | 2016-09-21 06:00 | NUR ---
PT C/O INCISIONAL PAIN 4/10 ON PAIN SCALE. PRN TORADOL 15 MG ADMINISTERED PER MD ORDER.
[2016-09-21 06:05] LABS: BASOPHILS 0 % (0-2); EOSINOPHILS 0 % (0-7); HEMATOCRIT 34.3 % (36.0-48.0); HEMOGLOBIN 10.9 g/dL (12-16); IMMATURE GRANULOCYTES 0.4 % (0-5); LYMPHOCYTES 4.2 % (15-50); MCH 30.7 pg (26.0-34.0); MCHC 31.8 g/dL (31.0-37.0); MCV 96.6 fL (80.0-100.0); MEAN PLATELET VOLUME 12.1 fL (7.4-10.4); MONOCYTES 3.4 % (2-11); RBC 3.55 10x6/uL (4.00-5.40); RDW 14.7 % (11.5-14.5); WBC 10.9 10x3/uL (4.8-10.8)
[2016-09-21 06:07] LABS: PLATELET COUNT 186 10x3/uL (130-400)
[2016-09-21 06:20] LABS: CALCIUM 8.6 mg/dL (8.5-10.1); CARBON DIOXIDE 26.3 mmol/L (21.0-32.0); CREATININE - SERUM 0.8 mg/dL (0.6-1.3); POTASSIUM - SERUM 4.3 mmol/L (3.5-5.1)
--- NOTE | 2016-09-21 08:40 | NUR ---
UP TO CHAIR PER P.T.
--- NOTE | 2016-09-21 10:29 | NUR ---
ASSISTED TO BEDSIDE COMMODE. SMALL AIR LEAK NOTED IN CHEST TUBE.
--- NOTE | 2016-09-21 12:17 | OP ---
PATIENT NAME: HARVINDER HALL MEDICAL RECORD: [id number] :[birth year] LOCATION:[facility] D.[id number] ADMISSION DATE:09/17/16 SURGEON: ARON STOVALL MD DATE OF OPERATION: 09/17/2016 SURGEON: Aron Stovall MD. ANESTHESIA: General endotracheal, Dr. Arnett. OPERATION PERFORMED: 1. Right thoracotomy with right middle and lower lobe resection. 2. Flexible fiberoptic bronchoscopy. PREOPERATIVE DIAGNOSIS: Squamous cell carcinoma of the right lower lobe. POSTOPERATIVE DIAGNOSIS: Squamous cell carcinoma of the right lower lobe. INDICATION FOR OPERATION: Carcinoma, right lower lobe. FINDINGS OF THE OPERATION: Carcinoma, right lower lobe near the fissure. The tumor on bronchoscopy involved the distal bronchus intermedius. SPECIMENS: 1. Right level 8 lymph node. 2. Right level 7 lymph node. 3. Right middle and lower lobes. 4. Right level 4 lymph node. ESTIMATED BLOOD LOSS: Less than 100 mL. DESCRIPTION OF PROCEDURE: After informed consent, adequate preoperative medication evaluation, the patient was brought to the operating room and placed on the table in the supine position. After induction of general endotracheal anesthesia and application of appropriate monitoring devices, the patient underwent flexible fiberoptic bronchoscopy and placement of a double lumen tube. Inspection of the right bronchus demonstrated the tumor coming from the right lower lobe and involving the bronchus intermedius and middle lobe. The upper lobe bronchus was free of obvious disease. The patient declined mediastinoscopy. The patient was then turned in a left lateral decubitus position. The right chest prepped and draped in a sterile field, utilizing Betadine scrub, alcohol, and Betadine solution. A Betadine-impregnated drape was also used. A posterolateral thoracotomy incision was made and dissection carried down the fascia. Hemostasis maintained with electrocautery. Fourth interspace was identified and opened. The lung was examined. The tumor was palpable. The hilum was then circumferentially dissected, dissecting the right inferior pulmonary vein. The fissure was then explored. The tumor was very near the fissure directly across from the right middle lobe. Dissection was carried out in the descending pulmonary artery on the right as well as the recurrent branches to the upper lobe and lower lobe. Attention was then turned anteriorly and the veins to the middle lobe dissected free of the right upper pulmonary vein. The bronchus was then dissected posteriorly, identify the bifurcation to the upper lobe, which was free of disease. Utilizing an Endo-MAYO stapler, the pulmonary arteries were divided. OPERATIVE REPORT [id number] HARVINDER HALL Attention was then turned toward the middle pulmonary veins and inferior pulmonary veins were also divided with an Endo-MAYO stapler. Attention was then turned toward dissection around the bronchus intermedius at the bifurcation of the upper lobe. This was surrounded and utilizing an Endo-MAYO stapler, the bronchus was divided after testing for ventilation of the upper lobe. The chest was irrigated with copious amounts of sterile water. Attention was then turned toward the lymph nodes. The lymph nodes at level 8, 7 and 4 were dissected free of surrounding structures utilizing the Harmonic scalpel. These were sent as separate specimens. Chest was again irrigated. Instrument count and sponge count were correct times 2. An anterior and superior chest tube was placed as well as a posterior and inferior tube, connected to underwater seal and suction. The chest was again irrigated. Instrument count and sponge count were correct times 2. Chest was closed in layers utilizing #2 Vicryl pericostal sutures, #1 Vicryl on the muscle, 2-0 Vicryl in the subcutaneous tissue and skin approximated with 3-0 subcuticular Monocryl. Sterile dressings were applied and the patient turned in a supine position, underwent flexible fiberoptic bronchoscopy demonstrated a good seal stopped at the bronchus intermedius and open right upper lobe bronchus. The left bronchus was clear. The patient was then awakened and transferred to the CV ICU in satisfactory condition. TRANSINT:[id number] Voice Confirmation ID: [id number] DOCUMENT ID: [id number] ARON STOVALL MD at 1217 CC: [id number] DICTATION DATE: 09/17/16 121 RISK MANAGEMENT ANALYST: 09/17/[id number] ADM IN [place] [id number] [place] [id number]
--- NOTE | 2016-09-21 17:25 | NUR ---
ASSISTED PT TO BATHROOM AND BACK TO BED. NO AIR LEAK NOTED TO CHEST TUBE.
--- NOTE | 2016-09-21 19:15 | NUR ---
RESUMED CARE OF PT, ASSESSMENT PER FLOWSHEET. PT ALERT AND ORIENTED X 4, ON 2L O2 VIA NC, HR SR WITH PAC'S ON CM, PPP, RT CHEST INCISION GERMAN, EDGES APPROXIMATED, RT LAT CT TO 20 OF SXN, VERY SMALL INTERMITTENT AIR LEAK NOTED, SEROUS FLUID DRAINING. PULLING 500 ON IS WITH FAIR INSPIRATORY EFFORT, STRONG COUGH NOTED, NO SPUTUM SEEN. POSITIONED UP IN BED SUPPORTED WITH PILLOWS, WILL MONITOR.
[2016-09-21 21:06] LABS: ACID FAST SMEAR Negative (()); AFB SPECIMEN PROCESSING Concentration (())
--- NOTE | 2016-09-21 22:16 | NUR ---
PT C/O INCISIONAL PAIN 4/10 ON PAIN SCALE, PRN PO HYDROCODONE 5/325 MG ADMINISTERED PER MD ORDER AND PT REQUEST. REPOSITIONED FOR COMFORT SUPPORTED WITH PILLOWS.
--- NOTE | 2016-09-21 22:45 | NUR ---
REASSESSMENT PER FLOWSHEET, NO ACUTE CHANGES NOTED. IS ENCOURAGED, GOOD PRODUCTIVE COUGH-NO SPUTUM SEEN.
[2016-09-22] VITALS (24 sets, daily range): BP systolic 124–176; BP diastolic 56–98
--- NOTE | 2016-09-22 01:40 | NUR ---
PT RESTING IN BED WITH EYES CLOSED, VSS, CONT TO MONITOR.
--- NOTE | 2016-09-22 02:46 | NUR ---
PRN PO PAIN MED ADMINISTERED PER PT REQUEST, C/O INCISIONAL PAIN 5/10 ON PAIN SCALE, WILL MONITOR FOR DESIRED EFFECT.
[2016-09-22 06:10] LABS: BASOPHILS 0 % (0-2); EOSINOPHILS 0 % (0-7); HEMATOCRIT 32.1 % (36.0-48.0); HEMOGLOBIN 10.2 g/dL (12-16); IMMATURE GRANULOCYTES 0.9 % (0-5); LYMPHOCYTES 5.2 % (15-50); MCH 30.2 pg (26.0-34.0); MCHC 31.8 g/dL (31.0-37.0); MEAN PLATELET VOLUME 11.7 fL (7.4-10.4); MONOCYTES 6.6 % (2-11); NEUTROPHILS 87.3 % (40-80); PLATELET COUNT 215 10x3/uL (130-400); RBC 3.38 10x6/uL (4.00-5.40); RDW 14.7 % (11.5-14.5); WBC 11.3 10x3/uL (4.8-10.8)
[2016-09-22 06:25] LABS: CALCIUM 9.1 mg/dL (8.5-10.1); CARBON DIOXIDE 28.3 mmol/L (21.0-32.0); CREATININE - SERUM 0.9 mg/dL (0.6-1.3); MAGNESIUM - SERUM 2.4 mg/dL (1.8-2.4); POTASSIUM - SERUM 4.3 mmol/L (3.5-5.1)
--- NOTE | 2016-09-22 07:35 | NUR ---
ASSISTED TO BATHROOM AND UP TO CHAIR FOR MEAL. SMALL AIR LEAK NOTED TO CHEST TUBE.
--- NOTE | 2016-09-22 09:40 | NUR ---
ENCOURAGED PT TO USE IS. PULLING 300-750.
--- NOTE | 2016-09-22 11:05 | NUR ---
PT NOTED TO BE IN SR WITHOUT PAC'S
--- NOTE | 2016-09-22 14:50 | NUR ---
COMPLETE BATH AND LINEN CHANGE.
--- NOTE | 2016-09-22 19:15 | NUR ---
RESUMED CARE OF PT, ASSESSMENT PER FLOWSHEET. PT ALERT AND ORIENTED, ON RA, PPP, RT LAT CHEST INCISION GERMAN, WOUND EDGES WELL APPROXIMATED, RT LAT CT TO 20 OF SXN, SMALL INTERMITTENT AIR LEAK NOTED-MD AWARE. ASSISTED PT TO BEDPAN, NO RESULTS YIELDED, CALL LIGHT IN REACH, POSITIONED FOR COMFORT.
--- NOTE | 2016-09-22 20:43 | NUR ---
PT C/O INCISIONAL PAIN 7/10 ON PAIN SCALE, NO RELIEF WITH REPOSITIONING, ORAL PRN PAIN MED ADMINISTERED PER MD ORDER AND PER PT REQUEST.
--- NOTE | 2016-09-22 22:39 | NUR ---
200 MG TESSALON PERLE ADMINISTERED PO PER PRN MD ORDER AND PT REQUEST FOR COUGH.
[2016-09-23] VITALS (24 sets, daily range): BP systolic 92–156; BP diastolic 47–82
--- NOTE | 2016-09-23 01:30 | NUR ---
PT RESTING IN BED WITH EYES CLOSED, VSS, CONT TO MONITOR.
--- NOTE | 2016-09-23 02:45 | NUR ---
REASSESSMENT PER FLOWSHEET, NO ACUTE CHANGES NOTED AT THIS TIME. PULLING 750 ON IS, FREQUENT COUGH NOTED, NON-PRODUCTIVE.
--- NOTE | 2016-09-23 05:37 | NUR ---
PT RESTING IN BED WITH EYES CLOSED, VSS, CONT POC.
[2016-09-23 06:04] LABS: BASOPHILS 0.1 % (0-2); EOSINOPHILS 0 % (0-7); HEMATOCRIT 32.5 % (36.0-48.0); HEMOGLOBIN 10.3 g/dL (12-16); IMMATURE GRANULOCYTES 4.4 % (0-5); MCH 30.1 pg (26.0-34.0); MCHC 31.7 g/dL (31.0-37.0); MEAN PLATELET VOLUME 11.6 fL (7.4-10.4); MONOCYTES 7.2 % (2-11); NEUTROPHILS 83.3 % (40-80); PLATELET COUNT 240 10x3/uL (130-400); RBC 3.42 10x6/uL (4.00-5.40); RDW 14.6 % (11.5-14.5)
[2016-09-23 06:07] LABS: WBC 14.3 10x3/uL (4.8-10.8)
[2016-09-23 06:19] LABS: ANION GAP 7.9 mmol/L (8-16); CALCIUM 8.9 mg/dL (8.5-10.1); CARBON DIOXIDE 29.6 mmol/L (21.0-32.0); CREATININE - SERUM 0.8 mg/dL (0.6-1.3); MAGNESIUM - SERUM 2.2 mg/dL (1.8-2.4); PHOSPHOROUS 3.5 mg/dL (2.5-4.9); POTASSIUM - SERUM 4.5 mmol/L (3.5-5.1)
--- NOTE | 2016-09-23 07:15 | NUR ---
REPORT RECIEVED FROM GEAR KEEPER NURSE. PT RESTING IN BED QUIETLY. NO S/SX OFA ACUTE DISTRESS NOTED AT THIS TIME. VSS. AAO. RIGHT ANT CT TO 20CM SUCTION. DRAINAGE IS SEROUSSANG. DRESSING C/D/I. RIGHT THORACOTOMY OPEN TO AIR WITH NO SIGNS OF INFECTION NOTED. FULL ASSESSMENT COMPLETE PER FLOWSHEET. WILL CONT TO ASSESS FOR CHANGES. CALL LIGHT IN REACH. BED IN LOW POSITION. AIR OVERLAY ON.
--- NOTE | 2016-09-23 08:45 | NUR ---
WALKED WITH PT WITH MIN ASSIST. PT DID HAVE SOME ISSUES WITH BALANCE AND COORDINATION. WALKED 100FT AND ASSISTED BACK TO RECLINER.
--- NOTE | 2016-09-23 09:00 | NUR ---
FAMILY AT BEDSIDE. UPDATE PROVIDED.
--- NOTE | 2016-09-23 10:20 | NUR ---
RIGHT ANTERIOR CHEST TUBE REMOVED PER DR. SINCLAIR. PT TOLERATED WELL. CLEANSED WITH BETADINE AND BETADINE OINT APPLIED TO SITE. OCCLUSIVE DRESSING PLACED OVER SITE. WILL MONITOR SITE FOR DRAINAGE/CHANGES.
--- NOTE | 2016-09-23 10:30 | NUR ---
Nutrition follow-up: Diet: Regular PO intake poor at this time. Labs reviewed Will continue to provide food choices and honor food preferences. RDN following.l
--- NOTE | 2016-09-23 11:39 | NUR ---
09/23/2016 11:37 DCP: Discharge Planning Rehab prescreen order rec'd. Patient agreeable to rehab transfer. Evaluation in progress. Anticipate DC later this afternoon. CM will follow.
--- NOTE | 2016-09-23 12:00 | NUR ---
JOHNNIE AT BEDSIDE FOR VISITATION.
[2016-09-23 12:13] LABS: FUNGUS STAIN Final report (())
--- NOTE | 2016-09-23 14:50 | NUR ---
Rehab Prescreening Consult recieved and the chart has been reviewed. She meets IRF criteria and feels she will benefit fro rehab. She will be accepted today if the physician agrees. Susanne Tomlin RN Clinical Liaison, Rehab
--- NOTE | 2016-09-23 15:00 | NUR ---
SISTER AT BEDSIDE. UPDATE PROVIDED.
--- NOTE | 2016-09-23 16:30 | NUR ---
ASSISTED TO BATHROOM. VOIDED 400CC OF CLEAR, YELLOW URINE. ASSISTED BACK TO BED. REPOSITIONED FOR COMFORT. BEDSIDE TABLE PLACED IN REACH WITH DINNER TRAY ALONG WITH CALL LIGHT. DENIES FURTHER NEEDS.
--- NOTE | 2016-09-23 19:45 | NUR ---
REPORT REC'D AND CARE ASSUMED, REC'D PT RESTING IN BED O2 @ 2 LITERS EYES CLOSED, AWAKENS TO VERBAL STIMULI, ORIENTED X 3, RDLSCL DRSG CDI BOTH PORTS SALINE LOCKED, RIGHT LATERAL CHEST INCISION OPEN TO AIR, PT MOVES ALL EXT'S EQUALLY, BILAT SCD'S INTACT AND ON, PPP, PT DENIES PAIN OR NEEDS, SR UP X 2, CALL LIGHT IN REACH, AIR OVERLAY MATTRESS IN USE, BED IN LOW POSITION.
--- NOTE | 2016-09-23 21:20 | NUR ---
EVENING MEDS GIVEN, PT ASSISTED UP TO BATHROOM, BACK TO BED WITHOUT DIFFICULTY, VSS, TOLERATED WELL
--- NOTE | 2016-09-23 21:26 | NUR ---
PT REQUESTING SOMETHING FOR PAIN, 2 NORCO TABS GIVEN, PT RATING PAIN "7-8" ON 0-10 PAIN SCALE, BP STABLE, WILL MONITOR FOR CHANGES.
--- NOTE | 2016-09-23 23:00 | NUR ---
REASSESSMENT COMPLETED, PT DENIES PAIN, PT PULLING 1000 ON IS, O2 SAT 96%, WILL CONT TO MONITOR FOR CHANGES.
--- NOTE | 2016-09-23 23:30 | NUR ---
PT REPOSITIONED UP AND ONTO LEFT SIDE SUPPORTED WITH PILLOWS, VSS, WILL CONT TO MONITOR
[2016-09-24] VITALS (24 sets, daily range): BP systolic 96–131; BP diastolic 42–77
--- NOTE | 2016-09-24 00:40 | NUR ---
JENIFER NOTED @ A RATE OF 110, BP 103/55, O2 SAT 98%, PT RESTING IN BED EYES CLOSED, WILL MONITOR CLOSELY FOR CHANGES.
--- NOTE | 2016-09-24 02:00 | NUR ---
PT AWAKE, REQUESTING BEDPAN, CM- AFIB/AFLUTTER 113, BEDPAN PROVIDED, PT VOIDED 300CC, PERICARE DONE AND PARTIAL LINEN CHANGE PROVIDED, PT REPOSITIONED UP IN BED FOR COMFORT.
--- NOTE | 2016-09-24 03:35 | NUR ---
PT COMPLAINS OF NAUSEA, 4MG ZOFRAN GIVEN SLOW IVP, PT ASSISTED TO POSITION FOR COMFORT, BP STABLE.
--- NOTE | 2016-09-24 06:00 | NUR ---
NO VISITORS IN AT THIS TIME, PT ASSISTED TO REPOSITION ONTO LEFT SIDE SUPPORTED WITH PILLOWS, CM-AFIB/AFLUTTER, LAB DRAWN AND SENT, PT DENIES FURTHER NEEDS.
[2016-09-24 06:26] LABS: BASOPHILS 0.1 % (0-2); EOSINOPHILS 0.1 % (0-7); HEMATOCRIT 32.8 % (36.0-48.0); HEMOGLOBIN 10.4 g/dL (12-16); IMMATURE GRANULOCYTES 4.8 % (0-5); MCH 30.3 pg (26.0-34.0); MCHC 31.7 g/dL (31.0-37.0); MCV 95.6 fL (80.0-100.0); MEAN PLATELET VOLUME 11.4 fL (7.4-10.4); MONOCYTES 9.3 % (2-11); NEUTROPHILS 77.7 % (40-80); PLATELET COUNT 257 10x3/uL (130-400); RBC 3.43 10x6/uL (4.00-5.40); RDW 14.7 % (11.5-14.5); WBC 13.6 10x3/uL (4.8-10.8)
[2016-09-24 06:36] LABS: CALC OSMOLALITY 283 mosm/kg (275-300); CALCIUM 9.2 mg/dL (8.5-10.1); CARBON DIOXIDE 30.9 mmol/L (21.0-32.0); CHLORIDE - SERUM 104 mmol/L (98-107); CREATININE - SERUM 0.7 mg/dL (0.6-1.3); GLUCOSE 134 mg/dL (74-106); POTASSIUM - SERUM 4.2 mmol/L (3.5-5.1); SODIUM 138 mmol/L (136-145); UREA NITROGEN 30 mg/dL (7-18); eGFR NON AFRICAN AMERICAN 83 mL/min (90-120)
--- NOTE | 2016-09-24 06:55 | NUR ---
PT CONVERTED TO SR @ 74, RESTING IN BED EYES CLOSED, RESP EVEN AND UNLABORED.
--- NOTE | 2016-09-24 07:30 | NUR ---
SHIFT ASSESSMENT VIA FLOWSHEET, SEE FOR DETAILS.
--- NOTE | 2016-09-24 08:13 | NUR ---
PT BAFFLE MOUNTER LIGHT. NURSE ASKED IF I COULD LOOK ON PATIENT MAR TO SEE IF SHE HAD ZOFRAN AVAILABLE. PT DOES, HOWEVER CANNOT HAVE ANOTHER DOSE UNTIL 0930. WAS GIVEN SOME AT 0330. PT BEING CLEANED UP AT THIS TIME.
--- NOTE | 2016-09-24 10:15 | NUR ---
AFIB NOTED ON CM. DR SINCLAIR ON UNIT, NOTIFIED.
--- NOTE | 2016-09-24 11:00 | NUR ---
PT HYPOTENSIVE, SBP 70. VALENTIN EMMANUEL RN NOTIFIED VIA PHONE AND WILL NOTIFY DR SINCLAIR.
--- NOTE | 2016-09-24 11:30 | NUR ---
REASSESSMENT VIA FLOWSHEET, SEE FOR DETAILS.
--- NOTE | 2016-09-24 12:17 | NUR ---
SPOKE WITH VALENTIN EMMANUEL RN VIA PHONE. NEW ORDERS RECEIVED.
--- NOTE | 2016-09-24 12:20 | NUR ---
DISCUSSED WITH PT THE NEED TO TAKE ORAL LOPRESSOR. PT BECAME TEARFUL STATING, "I CAN'T, I JUST CAN'T. I AM GOING TO VOMIT IF I TRY TO SWALLOW ANYTHING."
--- NOTE | 2016-09-24 12:53 | NUR ---
PT BACK TO BED WITH ASSIST. DYSPNEA NOTED WITH EXERTION. SPO2 97% ON 2L NC.
--- NOTE | 2016-09-24 14:06 | NUR ---
SPOKE WITH VALENTIN EMMANUEL RN VIA PHONE, REPORTED PT AFIB ON CM.
--- NOTE | 2016-09-24 14:28 | NUR ---
LOPRESSOR 5MG IV INITIATED (TO BE GIVEN OVER 30 MINUTES) PER ORDER. DISCUSSED WITH PATIENT THE NEED TO TAKE THE ORAL DOSE REMAINS. PT DENIES NAUSEA AT THIS TIME, BUT STATES SHE, "JUST DOESN'T FEEL WELL."
--- NOTE | 2016-09-24 14:58 | NUR ---
IV LOPRESSOR 5MG INFUSED OVER 30 MINUTES PER ORDER. PT CONTROLLED AFIB ON CM.
--- NOTE | 2016-09-24 15:30 | NUR ---
REASSESSMENT VIA FLOWSHEET, SEE FOR DETAILS.
--- NOTE | 2016-09-24 15:55 | NUR ---
PT SR ON CM, HR 67.
--- NOTE | 2016-09-24 18:19 | NUR ---
VISITOR AT BEDSIDE, UPDATE PROVIDED. PT VOICES NO ADDITIONAL NEEDS AT THIS TIME. CALL LIGHT WITHIN REACH. REMAINS SR ON CM AT A RATE OF 72 BPM.
--- NOTE | 2016-09-24 18:27 | NUR ---
SPOKE WITH DR BAKER VIA PHONE REGARDING MUCOMYST, INSTRUCTED TO D/C MED.
--- NOTE | 2016-09-24 19:30 | NUR ---
REPORT REC'D AND CARE ASSUMED, REC'D PT ON O2 @ 2LITERS VIA NC AWAKENS TO VERBAL STIMULI, ORIENTED X 3, RDLSCL DRSG CDI ALL PORTS SALINE LOCKED, RIGHT LATERAL INCISION OPEN TO AIR, EDGES WELL APPROXIMATED, RIGHT LATERAL DRSG TO PREVIOUS CT SITE CDI, PT DENIES PAIN, HANDS COLD TO TOUCH, TEMP 97.7, WARM BLANKET PROVIDED, ABD SOFT, PT DENIES TENDERNESS, BS HYPOACTIVE, PT REPORTS PASSING GAS, BILAT SCDS INTACT AND ON, AIR OVERLAY MATTERESS IN USE, SR UP X 2, CALL LIGHT IN REACH, BED IN LOW POSITION.
--- NOTE | 2016-09-24 21:12 | NUR ---
EVENING MED OF LOPRESSOR GIVEN, PT AGREEABLE TO TAKE LOPRESSOR WISHES TO NOT TAKE OTHER MEDICATION FOR FEAR OF MORE NAUSEA AND VOMITTING, EXCESS BLANKETS REMOVED FOR COMPLAINTS OF BEING "HOT", BP STABLE, WILL CONT TO MONITOR FOR CHANGES.
--- NOTE | 2016-09-24 23:40 | NUR ---
PT INCONTINENT OF URINE, STATES " I DIDN'T REALIZE I NEEDED TO GO UNTIL IT WAS TO LATE", PARTIAL BATH AND LINEN CHANGE PROVIDED, PT DENIES NAUSEA AT THIS TIME, PT REPOSITIONED UP AND ONTO LEFT SIDE SUPPORTED WITH PILLOWS, DENIES FURTHER NEEDS.
[2016-09-25] VITALS (24 sets, daily range): BP systolic 91–161; BP diastolic 40–80
--- NOTE | 2016-09-25 01:20 | NUR ---
PT REPOSITIONED ONTO BACK PER REQUEST, PT STATES " I CAN'T SLEEP", DENIES PAIN OR NAUSEA, VSS.
--- NOTE | 2016-09-25 03:30 | NUR ---
REASSESSMENT COMPLETED, RT @ BS FOR BREATHING TX, PT REPOSITIONED UP IN BED FOR COMFORT, PT DOZING AT INTERVALS, VSS, WILL CONT TO MONITOR FOR CHANGES.
--- NOTE | 2016-09-25 04:20 | NUR ---
ROUTINE MEDS GIVEN ORDERED, PT RESTING EYES CLOSED, RESP EVEN AND UNLABORED, VSS.
--- NOTE | 2016-09-25 06:00 | NUR ---
PT REPOSITIONED ONTO BACK FOR COMFORT, NO VISITORS IN AT THIS TIME
--- NOTE | 2016-09-25 07:30 | NUR ---
SHIFT ASSESSMENT VIA FLOWSHEET, SEE FOR DETAILS.
--- NOTE | 2016-09-25 08:00 | NUR ---
PT NOTED TO BE IN AFIB PER CM AT A RATE OF 150BPM. LOPRESSOR 25MG PO ADMINISTERED.
--- NOTE | 2016-09-25 09:45 | NUR ---
ASSISTED PT TO BATHROOM. VOIDED CLEAR, YELLOW URINE. RETURNED TO CHAIR AT BEDSIDE.
[2016-09-25] MEDS ORDERED: LOPRESSOR25 MG PO (10:21)
[2016-09-25] MEDS ORDERED: ELIQUIS2.5 MG PO (10:21)
[2016-09-25] MEDS ORDERED: FLORAJEN3 CAPS460 MG PO (10:22)
[2016-09-25] MEDS ORDERED: BENZONATATE200 MG PO (10:22)
--- NOTE | 2016-09-25 10:23 | NUR ---
NUTRITION MONITORING & EVAL CHART REVIEWED. PT UP IN CHAIR. SIPS OF MILK AND 1/2 PIECE TOAST FOR BREAKFAST. WILL CONTINUE TO MONITOR PO INTAKE, PT PROGRESS. RD FOLLOWING
[2016-09-25] MEDS ORDERED: PREDNISONE20 MG PO (10:25)
[2016-09-25] MEDS ORDERED: ULTRAM50 MG PO (10:26)
--- NOTE | 2016-09-25 11:30 | NUR ---
REASSESSMENT VIA FLOWSHEET, SEE FOR DETAILS.
--- NOTE | 2016-09-25 12:05 | NUR ---
NO VISITORS AT THIS TIME. ASSISTED PT TO RESTROOM AND RETURNED TO BED. CALL LIGHT WITHIN REACH.
[2016-09-25 14:13] LABS: AMYLASE - SERUM 209 U/L (25-115); LIPASE 98 U/L (73-393)
--- NOTE | 2016-09-25 15:30 | NUR ---
REASSESSMENT VIA FLOWSHEET, SEE FOR DETAILS.
--- NOTE | 2016-09-25 18:20 | NUR ---
FAMILY MEMBER AT BEDSIDE, UPDATE PROVIDED.
--- NOTE | 2016-09-25 19:00 | NUR ---
REPORT RECEIVED AND ASSESSMENT COMPLETED. SEE FLOWSHEET FOR FULL DETAILS. PT REPORT NAUSEA EARLIER IN DAY SHIFT. DENIES PAIN. PT HAS SLIGHT CRACKLES IN UPPER LOBES WITH DIMINISHED SOUNDS IN LOWER LEFT LOBE. VSS. WILL MONITOR THROUGHOUT SHIFT.
--- NOTE | 2016-09-25 21:00 | NUR ---
2100 MEDS GIVEN. PT HAS HAD 2 SMALL OUTPUTS. 150 ML EACH FOR A TOTAL OF 300 OUT. NO OTHER CHANGES AT THIS TIME
--- NOTE | 2016-09-25 23:00 | NUR ---
REASSESSMENT COMPLETED. SEE FLOWSHEET FOR FULL DETAILS. NO OTHER CHANGES IN STATUS AT THIS TIME. VSS. WILL CONTINUE TO MONITOR
[2016-09-26] VITALS (22 sets, daily range): BP systolic 106–143; BP diastolic 40–86
--- NOTE | 2016-09-26 01:00 | NUR ---
NO CHANGES IN STATUS AT THIS TIME. VSS. WILL CONTIUE TO MONITOR.
--- NOTE | 2016-09-26 03:02 | NUR ---
REASSESSMENT COMPLETED. SEE FLOWSHEET FOR FULL DETAILS. NO CHANGES IN STATUS. VSS. WILL CONTINUE TO MONITOR
--- NOTE | 2016-09-26 05:09 | NUR ---
I&O COLLECTED AND WEIGHT TAKEN. SEVERAL BLANKETS REMOVED THROUGHOUT THE SHIFT MAY EFFECT BEDSCALE WEIGHT. NO OTHER CHANGES AT THIS TIME. VSS. WILL MONITOR
--- NOTE | 2016-09-26 07:00 | NUR ---
REC'D CARE OF PT. A&O X3.
--- NOTE | 2016-09-26 08:06 | NUR ---
PULLED UP IN BED TO PRESERVE SKINE INTEGRITY AND TO REPOSITION FOR BREAKFAST. HOB 45 DEGREES.
--- NOTE | 2016-09-26 08:07 | NUR ---
BREAKFAST TRAY SERVED. DENIES NEEDS. DENIES PAIN. CLWR. CPOC.
--- NOTE | 2016-09-26 08:15 | NUR ---
OOB TO CHAIR WITH AILIN JOHNSTON
--- NOTE | 2016-09-26 08:30 | NUR ---
ATE A COUPLE OF BITES AND TOOK A COUPLE SIPS. NO NAUSEA.
--- NOTE | 2016-09-26 08:45 | NUR ---
PT. REPORTS SORE THROAT AND HARD TO SWALLOW. BLISTERS IN BACK OF THROAT. DR. SINCLAIR UPDATED.
--- NOTE | 2016-09-26 08:51 | NUR ---
DR. SINCLAIR AT BEDSIDE.
--- NOTE | 2016-09-26 09:11 | NUR ---
FAMILY AT [facility]. UPDATED.
--- NOTE | 2016-09-26 09:46 | NUR ---
REMAINS UP TO CHAIR. RIGHT SCDL=SL. STERILE CAPS IN PLACE. BIO PATCH IN PLACE. DRSG CD&I. ON 2L O2 VIA NC. SATTING 97%. CM=NS 63. NO NAUSEA. RIGHT THORACOTOMY INCISION. GERMAN. INCISION INTACT. EDGES WELL APPROXIMATED. CPOC. CLWR.
--- NOTE | 2016-09-26 10:20 | NUR ---
FROM CHAIR TO BATHROOM. HAD 400 CC CONCENTRATED URINE.BACK TO CHAIR WITH MODERATE ASSIST.
--- NOTE | 2016-09-26 10:30 | NUR ---
REMAINMS UP IN CHAIR. VSS. SATTING 99% ON 2L O2 VIA NC.
--- NOTE | 2016-09-26 11:06 | NUR ---
BACK TO BED WITHOUT DIFFICULTY. ANTIBIOTIC CONTINUES TO INFUSE. VSS.
--- NOTE | 2016-09-26 11:45 | NUR ---
JUNE FROM LAB HERE TO DRAW BLOOD FOR BMP AND HEMOGRAM. CVL WILL NOT DRAW.
[2016-09-26 11:52] LABS: HEMATOCRIT 32.4 % (36.0-48.0); HEMOGLOBIN 10.4 g/dL (12-16); MCH 30.9 pg (26.0-34.0); MCHC 32.1 g/dL (31.0-37.0); MCV 96.1 fL (80.0-100.0); MEAN PLATELET VOLUME 10.9 fL (7.4-10.4); RBC 3.37 10x6/uL (4.00-5.40); WBC 12.7 10x3/uL (4.8-10.8)
--- NOTE | 2016-09-26 11:54 | NUR ---
DR. DAVENPORT AT BEDSIDE. I UPDATED HIM ABOUT THE BLISTERS IN THE BACK OF HER THROAT.
[2016-09-26 12:02] LABS: CALC OSMOLALITY 288 mosm/kg (275-300); CALCIUM 9.2 mg/dL (8.5-10.1); CARBON DIOXIDE 29.7 mmol/L (21.0-32.0); CHLORIDE - SERUM 104 mmol/L (98-107); CREATININE - SERUM 0.6 mg/dL (0.6-1.3); GLUCOSE 133 mg/dL (74-106); POTASSIUM - SERUM 4.5 mmol/L (3.5-5.1); SODIUM 139 mmol/L (136-145); UREA NITROGEN 37 mg/dL (7-18); eGFR NON AFRICAN AMERICAN > 90 mL/min (90-120)
--- NOTE | 2016-09-26 12:30 | NUR ---
Nutrition follow-up: Diet: Regular with chocolate Ensure TID PO intake remains poor at this time Pt now with blisters on back of throat Wt: 189# Labs reviewed Will need to consider nutrition support if po intake remains poor Pt may benefit from short-term ProcalAmine PPN RDN following.
--- NOTE | 2016-09-26 13:05 | NUR ---
RESTING WITH EYES CLOSED. VSS.
--- NOTE | 2016-09-26 14:06 | NUR ---
PULLS 500-750 ON IS
--- NOTE | 2016-09-26 15:10 | NUR ---
FAMILY AT BEDSIDE. UPDATED.
[2016-09-26 17:10] LABS: AEROBE ID Final report (())
--- NOTE | 2016-09-26 17:13 | NUR ---
REQUESTED BEDPAN. OBLIGED. HAD 300 CC CONCENTRATED URINE. OFF OF BEDPAN. COMPLETE BATH GIVEN. ALL LINENS CHANGED. SCD'S PLACED BACK ON. DRSG CHANGED AT RIGHT UPPER LATERAL DC'D CT SITE. LOWER RIGHT LATERAL DC'D CT SITE METAL MIXER. RIGHT THORACOTOMY SITE GERMAN. INCISIONAL EDGES WELL APPROXIMATED. NO S/S OF DEHISCING. CLWR. CPOC.
--- NOTE | 2016-09-26 18:06 | NUR ---
FAMILY AT BEDSIDE. UPDATED.
--- NOTE | 2016-09-26 19:30 | NUR ---
REPORT RECEIVED AND CARE ASSUMED. INITIAL SHIFT ASSESSMENT COMPLETED SEE FLOWSHEET. PT IN ROOM LYING IN BED EYES CLOSED BUT NOT SLEEPING AND IMMEDIATELY RESPONSIVE. DENIES NEEDS AND DENIES PAIN. DID ADMIT TO POOR APPETITE. HAS SOME BUTTERMILK ON BEDSIDE TABLE AND ENCOURAGED PT TO DRINK THIS. PT DID DRINK BUT STATES SHE HAS DISCOMFORT ON RIGHT SIDE IN BACK OF THROAT WHEN SHE SWALLOWS. UNABLE TO VISUALIZE THE AREA AND PT HAS HAD ISSUES WITH NAUSEA LATELY SO DID NOT BECOME AGGRESSIVE. PHYSICIANS ARE AWARE OF THIS AND IT WAS REPORTED THAT PT HAS PUSTULES ON BACK OF THROAT. I DID NOTICE TONGUE HAS THICK WHITE COATING (PRIOR TO BUTTERMILK). PT DOES HAVE RIGHT SC DL USED FOR ABT THERAPY. S/L AT THIS TIME. BOTH PORTS FLUSHED WITH NS TO MAINTAIN PATENCY. PT CONTINUES TO BE MONITORED PER STANDARD ICU PROTOCOL AWAITING TRANSFER TO REHAB. ALL ALARMS ARE SET AND VERIFIED. RECEIVING 2L HUMIDIFIED O2 PER N/C. OVERLAY AIR MATTRESS TURNED ON SCD'S TURNED ON. BED IN LOW POSITION AND CALL LIGHT LEFT IN REACH.
--- NOTE | 2016-09-26 20:30 | NUR ---
HS MEDS WERE ADMINISTERED WITHOUT DIFFICULTY. PT TEACHING DONE WITH EACH MED. PT DEMONSTRATED GOOD COMPREHENSION OF HER MEDICATIONS. PT STATED SHE FEELS LIKE HER THROAT IS IMPROVED STATING SHE HAS DISCOMFORT WHEN SWALLOWING BUT IS IS LESS THAN IT WAS EARLIER TODAY.
--- NOTE | 2016-09-26 21:00 | NUR ---
NO VISITORS AT THIS TIME. SECURITY CODE SET UP AND PLACED ON CHART.
--- NOTE | 2016-09-26 23:00 | NUR ---
PT SLEEPING WITH REG AND NONLABORED RESP.
[2016-09-27] VITALS (12 sets, daily range): BP systolic 112–155; BP diastolic 41–67
--- NOTE | 2016-09-27 01:00 | NUR ---
PT NOTED TO HAVE BRIEF PERIODS OF AFIB. PT TURNED OFF OF LEFT SIDE AND NO FURTHER AFIB NOTED. PT NOW RESTING QUIETLY VSS
--- NOTE | 2016-09-27 01:15 | NUR ---
PT C/O SHOULDER PAIN AND GIVEN MEDICATION RECORDED ON MAY. WARM BLANKET APPLIED TO SHOULDERS AND PT REPOSITIONED FOR COMFORT.
--- NOTE | 2016-09-27 01:30 | NUR ---
PT SLEEPING RESP REG AND NONLABORED
--- NOTE | 2016-09-27 03:00 | NUR ---
WARM BLANKET REAPPLIED TO SHOULDERS PER REQUEST. PT STATES "IT FELT DELICIOUS" PT DENIES PAIN AT THIS TIME.
--- NOTE | 2016-09-27 05:03 | NUR ---
PT SLEEPING SOUNDLY RESP REG AND NONLABORED
--- NOTE | 2016-09-27 08:40 | NUR ---
IS DONE WITH PT UP IN CHAIR. PULLS 750-100.
--- NOTE | 2016-09-27 12:05 | NUR ---
COPY OF CURRENT ORDERS AND MED REC PRINTED FOR REHAB. REPORT CALLED TO [facility]ELDS.
--- NOTE | 2016-09-27 12:18 | NUR ---
SHIAR WILLIAM NOTIFIED OF PT'S TRANSFER TO REHAB.
--- NOTE | 2016-09-27 12:27 | NUR ---
PT DC'D TO REHAB VIA WHEELCHAIR.
--- NOTE | 2016-09-27 13:12 | NUR ---
09/27/2016 13:10 DCP: Discharge Planning Order rec'd this morning to discharge to inpatient rehab. Call was placed to Susanne with rehab. Patient was accepted. Met with patient - agreeable to plan. Patient has now transferred.
== END 2016-09-27 12:36 | DRG 163 ==
LOC: D.SDCHOLD 05:00 → D.CVICU 05:00 → D.SDCHOLD 07:30 → D.CVICU 12:03
PROVIDERS: Family Medicine; Internal Medicine Pulmonary Disease; ADMIT Internal Medicine Cardiovascular Disease
PROC: 0BB Respiratory System, Excision (ICD-10-PCS; 2016-09-17)
PROC: 0BB Respiratory System, Excision (ICD-10-PCS; principal; 2016-09-17 07:30)
PROC: 0BB48ZX Excision of Right Upper Lobe Bronchus, Via Natural or Artificial Opening Endoscopic, Diagnostic (ICD-10-PCS; 2016-09-20)
PROC: 0BB38ZX Excision of Right Main Bronchus, Via Natural or Artificial Opening Endoscopic, Diagnostic (ICD-10-PCS; 2016-09-20)
DX: C34.31 Malignant neoplasm of lower lobe, right bronchus or lung (principal); J96.92 Respiratory failure, unspecified with hypercapnia; T17.590A Other foreign object in bronchus causing asphyxiation, initial encounter; D62 Acute posthemorrhagic anemia; N39.41 Urge incontinence; I70.213 Atherosclerosis of native arteries of extremities with intermittent claudication, bilateral legs; Z87.891 Personal history of nicotine dependence; M19.90 Unspecified osteoarthritis, unspecified site; K21.9 Gastro-esophageal reflux disease without esophagitis; J44.9 Chronic obstructive pulmonary disease, unspecified; J45.909 Unspecified asthma, uncomplicated; R53.81 Other malaise

== ENCOUNTER 2016-09-27 12:54 | Inpatient (IN) | payer MEDICARE, BC ==
[~2016-09-27] VITALS: Ht 157.5 cm; Wt 69.3 kg
[~2016-09-27 12:54] MED LIST changes: +BENZONATATE200 MG PO; +ELIQUIS2.5 MG PO; +FLORAJEN3 CAPS460 MG PO; +LOPRESSOR25 MG PO; +PREDNISONE20 MG PO; +ULTRAM50 MG PO
--- NOTE | 2016-09-27 13:00 | NUR ---
PT RESCIEVED TO UNIT FROM CVICU VIA WC. ADMITTED TO ROOM 1111A TO DR [facility].
[2016-09-27 13:15] VITALS: BP 118/60
--- NOTE | 2016-09-27 15:51 | NUR ---
RESTING QUIETLY IN BED. OXYGEN IN PLACE. EYES CLOSED. NO S/S DISTRESS.
--- NOTE | 2016-09-27 17:42 | NUR ---
PT IS FEEDING SELF SUPPER IN HER ROOM. NO ACUTE DISTRESS NOTED.
--- NOTE | 2016-09-27 18:29 | NUR ---
RESTING QUIETLY IN BED. ATE SUPPER IN BED AND NOW RESTING. CALL LIGHT IN REACH
[2016-09-27 18:38] VITALS: BP 140/109
--- NOTE | 2016-09-27 20:00 | NUR ---
PT. IN BED WITH HOB UP FOR COMFORT AND EYES CLOSED AND RESP. EVEN. PT. AWAKENS EASILY FOR ASSESSMENT. O2 ON AT 2L/MIN VIA N/C AND NO OBSERVED DISTRESS. CALL LIGHT WITHIN REACH.
--- NOTE | 2016-09-27 23:23 | NUR ---
PT. IN BED WITH HOB UP FOR COMFORT WITH EYES CLOSED AND RESP. EVEN. O2 ON AT 2L/MIN VIA N/C AND NO VISUAL SIS DISTRESS. CALL LIGHT WITHIN REACH.
--- NOTE | 2016-09-28 03:06 | NUR ---
PT. IN BED WITH HOB UP FOR COMFORT WITH EYES CLOSED AND RESP. EVEN. O2 ON AT 2L/MIN VIA N/C WITHOUT ANY S/S DISTRESS. CALL LIGHT WITHIN REACH.
[2016-09-28 06:13] LABS: BASOPHILS 0.1 % (0-2); EOSINOPHILS 0.6 % (0-7); HEMATOCRIT 32.3 % (36.0-48.0); HEMOGLOBIN 10.4 g/dL (12-16); IMMATURE GRANULOCYTES 2.6 % (0-5); LYMPHOCYTES 11.3 % (15-50); MCH 30.5 pg (26.0-34.0); MCHC 32.2 g/dL (31.0-37.0); MCV 94.7 fL (80.0-100.0); MEAN PLATELET VOLUME 11.7 fL (7.4-10.4); MONOCYTES 10.2 % (2-11); NEUTROPHILS 75.2 % (40-80); PLATELET COUNT 246 10x3/uL (130-400); RBC 3.41 10x6/uL (4.00-5.40); RDW 14.9 % (11.5-14.5); WBC 11.7 10x3/uL (4.8-10.8)
--- NOTE | 2016-09-28 06:40 | NUR ---
PT. IN BED WITH HOB UP FOR COMFORT WITH EYES CLOSED AND RESP. EVEN WITH NASAL CPAP IN PLACE. CALL LIGHT WITHIN REACH.
--- NOTE | 2016-09-28 06:42 | NUR ---
PT. IN BED WITH HOB UP FOR COMFORT WITH EYES CLOSED AND RESP. EVEN. CALL LIGHT WITHIN REACH.
[2016-09-28 06:45] LABS: ANION GAP 8.5 mmol/L (8-16); CALCIUM 9.3 mg/dL (8.5-10.1); CARBON DIOXIDE 30.5 mmol/L (21.0-32.0)
[2016-09-28 06:47] LABS: CREATININE - SERUM 0.8 mg/dL (0.6-1.3)
--- NOTE | 2016-09-28 08:15 | NUR ---
PT RESTING IN BED WITH EYES OPEN CALL LIGHT IN REACH NO PROBLEMS WILL MONITER
--- NOTE | 2016-09-28 08:34 | NUR ---
SITTING UP IN WC.DENIES NEEDS.CL IN REACH.
[2016-09-28 15:30] VITALS: Ht 157.5 cm; Wt 69.3 kg
--- NOTE | 2016-09-28 18:11 | NUR ---
PT RESTING IN BED WITH EYES OPEN CALL LIGHT IN REACH NO PROBLEMS WILL MONITER
[2016-09-28 18:45] VITALS: BP 139/55
--- NOTE | 2016-09-28 23:07 | NUR ---
PT. IN BED WITH HOB UP FOR COMFORT WITH EYES CLOSED AND RESP. EVEN. O2 ON VIA N/C AT 2L/MIN WITHOU ANY S/S DISTRESS OBSERVED. CALL LIGHT WITHIN REACH.
--- NOTE | 2016-09-29 03:21 | NUR ---
PT. IN BED WITH HOB UP FOR COMFORT WITH EYES CLOSED AND RESP. EVEN. O2 ON AT 2L/MIN WITHOUT ANY S/S DISTRESS OBSERVED. CALL LIGHT WITHIN REACH.
[2016-09-29 09:35] VITALS: BP 123/52
--- NOTE | 2016-09-29 09:51 | NUR ---
PATIENT ALERT/ORIENT. HAS OXYGEN ON AT 2L PER N/C. PATIENT USING CALL LIGHT FOR NEEDS. CALL LIGHT WITHIN REACH.
--- NOTE | 2016-09-29 12:55 | NUR ---
PATIENT HELPED INTO BATHROOM WITH MIN ASST FROM BED TO WHEELCHAIR AND WHEELCHAIR TO TOILET.
--- NOTE | 2016-09-29 13:12 | NUR ---
PATIENT WALKS USING A CANE WITH STANDBY ASST. REQUESTED PRN MIRALAX. STATES SHE HAS NOT HAD A BOWEL MOVEMENT IN THREE DAYS. PRN MIRALAX GIVEN
--- NOTE | 2016-09-29 15:47 | NUR ---
PICC LINE DRESSING CHANGED TO RIGHT SC.
--- NOTE | 2016-09-29 18:31 | NUR ---
DUCOLAX SUPP. GIVEN FOR CONSTIPATION.
--- NOTE | 2016-09-29 19:25 | NUR ---
PT. IN BED WITH HOB UP FOR COMFORT WITH EYES CLOSED AND RESP. EVEN. PT. AWAKENS EASILY FOR ASSESSMENT. NO VOICED NEEDS AT THIS TIME. VISITORS HERE. PT. DID STATE THAT HER STOMACH FEELS SO MUCH BETTER NOW THAT SHE HAS HAD A BM. CALL LIGHT WITHIN ERACH AND HER O2 IS ON AT 2L/MIN VIA N/C WITHOUT ANY S/S DISTRESS.
[2016-09-29 22:44] VITALS: BP 134/60
--- NOTE | 2016-09-29 23:03 | NUR ---
PT. IN BED WITH HOB UP FOR COMFORT WITH EYES CLOSED AND RESP. EVEN. O2 ON AT 2L/MIN VIA N/C WITHOUT ANY S/S DISTRESS OBSERVED. CALL LIGHT WITHIN REACH.
[2016-09-30 05:58] LABS: BASOPHILS 0.1 % (0-2); EOSINOPHILS 0.5 % (0-7); HEMATOCRIT 31.3 % (36.0-48.0); HEMOGLOBIN 9.8 g/dL (12-16); IMMATURE GRANULOCYTES 2.4 % (0-5); LYMPHOCYTES 11.7 % (15-50); MCH 29.6 pg (26.0-34.0); MCHC 31.3 g/dL (31.0-37.0); MCV 94.6 fL (80.0-100.0); MEAN PLATELET VOLUME 12.1 fL (7.4-10.4); MONOCYTES 9.4 % (2-11); NEUTROPHILS 75.9 % (40-80); PLATELET COUNT 248 10x3/uL (130-400); RBC 3.31 10x6/uL (4.00-5.40); RDW 14.9 % (11.5-14.5); WBC 12.6 10x3/uL (4.8-10.8)
[2016-09-30 06:06] LABS: CALC OSMOLALITY 286 mosm/kg (275-300); CALCIUM 9.1 mg/dL (8.5-10.1); CARBON DIOXIDE 28.3 mmol/L (21.0-32.0); CHLORIDE - SERUM 104 mmol/L (98-107); CREATININE - SERUM 0.7 mg/dL (0.6-1.3); GLUCOSE 95 mg/dL (74-106); POTASSIUM - SERUM 3.6 mmol/L (3.5-5.1); SODIUM 140 mmol/L (136-145); UREA NITROGEN 34 mg/dL (7-18); eGFR NON AFRICAN AMERICAN 83 mL/min (90-120)
--- NOTE | 2016-09-30 08:15 | NUR ---
PT UP IN WHEELCHAIR EATING BREAKFAST TOLERATING WELL
[2016-09-30 09:12] VITALS: BP 121/52
--- NOTE | 2016-09-30 16:03 | NUR ---
PT RESTING IN BED WITH EYES OPEN CALL LIGHT IN REACH NO PROBLEMS WILL MONITER
--- NOTE | 2016-09-30 19:18 | NUR ---
RESTING QUIETLY IN BED. CALL LIGHT IN REACH
[2016-09-30 20:07] VITALS: BP 111/51
--- NOTE | 2016-09-30 21:40 | NUR ---
PT HS MEDS ADMINISTERED. PT DENIES NEEDS AT THIS TIME.
--- NOTE | 2016-10-01 00:35 | NUR ---
PT RESTING, EYES CLOSED. BED LOW. C IGLESIA REACH.
--- NOTE | 2016-10-01 03:15 | NUR ---
PT RESTING, EYES CLOSED. BED LOW. CL IN REACH.
--- NOTE | 2016-10-01 05:45 | NUR ---
PT IV FLUSHED. PT ASSISTED TO BR. PT BACK IN BED AND DENIES FURHTER NEEDS.
--- NOTE | 2016-10-01 07:12 | NUR ---
RESTING QUIETLY IN BED WITH EYES CLOSED. CALL LIGHT IN REACH
[2016-10-01 08:48] VITALS: BP 121/49
--- NOTE | 2016-10-01 10:15 | NUR ---
PATIENT ALERT/ORIENT. USING CALL LIGHT FOR NEEDS. OXYGEN ON AT 2L PER N/C. INCISION TO LEFT SHOULDER TO BACK HEALING. OPEN TO AIR.
--- NOTE | 2016-10-01 13:37 | NUR ---
SHOWERED TAKEN WITH HELP FROM NURSE ASST.
--- NOTE | 2016-10-01 19:35 | NUR ---
PT HS MEDS ADMINISTERED. ASSESSMENT COMPLETE. PT DENIES NEEDS. WCTM.
[2016-10-01 19:45] VITALS: BP 96/67
--- NOTE | 2016-10-02 02:41 | NUR ---
PT RESTING, EYES CLOSED. CL IN REACH. WCTM.
[2016-10-02 06:54] LABS: BASOPHILS 0.1 % (0-2); HEMATOCRIT 33.8 % (36.0-48.0); HEMOGLOBIN 10.7 g/dL (12-16); IMMATURE GRANULOCYTES 1.5 % (0-5); LYMPHOCYTES 15.1 % (15-50); MCH 30.3 pg (26.0-34.0); MCHC 31.7 g/dL (31.0-37.0); MCV 95.8 fL (80.0-100.0); MEAN PLATELET VOLUME 11.9 fL (7.4-10.4); MONOCYTES 9.2 % (2-11); NEUTROPHILS 73.1 % (40-80); PLATELET COUNT 275 10x3/uL (130-400); RBC 3.53 10x6/uL (4.00-5.40); RDW 15.3 % (11.5-14.5); WBC 10.1 10x3/uL (4.8-10.8)
[2016-10-02 06:59] LABS: ANION GAP 9.1 mmol/L (8-16); CALCIUM 9.1 mg/dL (8.5-10.1); CREATININE - SERUM 0.8 mg/dL (0.6-1.3); POTASSIUM - SERUM 3.1 mmol/L (3.5-5.1)
--- NOTE | 2016-10-02 08:00 | NUR ---
PATIENT ALERT/ORIENT. SITTING UP IN THE BED TO EAT BREAKFAST. NEEDS HELP OPENING UP CARTONS. OXGEN ON AT 3L PER N/C. CALL LIGHT WITHIN REACH. VOICES NO NEEDS AT THIS TIME.
[2016-10-02 08:09] VITALS: BP 90/50
--- NOTE | 2016-10-02 08:45 | NUR ---
DR HERNÁNDEZ PAGED IN REGARDS TO CONSULT.
--- NOTE | 2016-10-02 09:05 | NUR ---
PATIENT IN REHAB ROOM. WORKING WITH PHYSICAL THERAPIST. OXYGEN REMOVED FOR THREE MINUTES. WALKING UP AND DOWN HALLWAY. PULSE OX IS AT 96% ON ROOM AIR.
--- NOTE | 2016-10-02 10:20 | NUR ---
RESPITORY THERAPIST IN PATIENTS ROOM TO GIVE BREATHING TREATMENT. STATES PULSE OX IS AT 87. RESPITORY THERAPIST STATES HE WILL PUT OXYGEN ON PATIENT AT 3L PER N/C AFTER BREATHING TREATMENT.
--- NOTE | 2016-10-02 14:50 | NUR ---
DRESSING TO CENTRAL LINE CHANGED TO RSC
--- NOTE | 2016-10-02 14:56 | NUR ---
RESTING QUIETLY.CL IN REACH.
--- NOTE | 2016-10-02 18:20 | NUR ---
DR. HERNÁNDEZ INTO SEE PATIENT. NO NEW ORDERS RECEIVED.
--- NOTE | 2016-10-02 19:29 | NUR ---
PT RESTING IN BED WATCHING TV, DENIES NEEDS. WCTM.
[2016-10-02 23:48] VITALS: BP 100/59
--- NOTE | 2016-10-03 01:04 | NUR ---
PT RESTING, EYES CLOSED. RR ARE EVEN AND UNLABORED. CL IN REACH. WCTM.
--- NOTE | 2016-10-03 06:37 | NUR ---
PT AWAKE WATCHING TV, DENIES NEEDS. WCTM.
--- NOTE | 2016-10-03 07:26 | NUR ---
RESTING QUIETLY IN BED.CL IN REACH.
[2016-10-03 08:35] VITALS: BP 106/50
--- NOTE | 2016-10-03 12:34 | NUR ---
PT UP IN WHEELCHAIR EATING LUNCH TOLERATING WELL WILL MONITER
--- NOTE | 2016-10-03 13:18 | NUR ---
Nutrition Follow Up: Pt reported that her appetite "is not what it should be." She said that she has not been hungry for ~3 days. Pt stated that she is trying to eat as much as she can. She refused supplements stating that they are sweet and make her sick. Pt is eating 44% meal avg on a regular diet. Wt stable. +BM 09/30/16. Labs reviewed. Meds noted including Bumex. Rec continue current diet. Will continue to provide selective menus and honor food preferences. RD following.
--- NOTE | 2016-10-03 19:40 | NUR ---
PT. IN BED WITH HOB UP FOR COMFORT AND NEEDING TO GO TO THE BATHROOM ASSISTED PT. TO/FROM BR AND NO BM YET. PT. REQUESTING SUPPOSITORY TONIGHT FOR CONSTIPATION RELIEF. ASSESSMENT COMPLETED. NO OTHER VOICED NEEDS AT THIS TIME. O2 ON VIA N/C @2L/MIN WITHOUT ANY S/S DISTRESS OBSERVED. CALL LIGHT WITHIN REACH.
[2016-10-03 20:49] VITALS: BP 101/59
--- NOTE | 2016-10-04 03:16 | NUR ---
PT. IN BED WITH HOB UP FOR COMFORT. EYES CLOSED AND RESP. EVEN. O2 ON AT 2L/MIN VIA N/C WITHOUT ANY S/S DISTRESS. CALL LIGHT WITHIN REACH.
[2016-10-04 06:56] LABS: BASOPHILS 0.2 % (0-2); EOSINOPHILS 0.7 % (0-7); HEMATOCRIT 32.8 % (36.0-48.0); HEMOGLOBIN 10.5 g/dL (12-16); IMMATURE GRANULOCYTES 0.8 % (0-5); LYMPHOCYTES 13.1 % (15-50); MCH 30.5 pg (26.0-34.0); MCV 95.3 fL (80.0-100.0); MEAN PLATELET VOLUME 11.5 fL (7.4-10.4); MONOCYTES 6.4 % (2-11); NEUTROPHILS 78.8 % (40-80); PLATELET COUNT 289 10x3/uL (130-400); RBC 3.44 10x6/uL (4.00-5.40); RDW 15.2 % (11.5-14.5)
[2016-10-04 07:13] LABS: ANION GAP 9.8 mmol/L (8-16); CALCIUM 8.6 mg/dL (8.5-10.1); CARBON DIOXIDE 30.5 mmol/L (21.0-32.0); CREATININE - SERUM 0.8 mg/dL (0.6-1.3); POTASSIUM - SERUM 3.3 mmol/L (3.5-5.1)
[2016-10-04 08:51] VITALS: BP 101/46
--- NOTE | 2016-10-04 10:41 | NUR ---
SITTING UP IN BED.CL IN REACH.
--- NOTE | 2016-10-04 15:47 | NUR ---
PT RESTING IN BED WITH EYES OPEN WATCHING TV WILL MONITER
[2016-10-04 19:06] VITALS: BP 111/41
--- NOTE | 2016-10-04 23:10 | NUR ---
REST QUIETLY IN BED WITH EYE CLOSE, CALL LIGHT WITHIN REACH.
--- NOTE | 2016-10-05 04:22 | NUR ---
PT RESTING QUIETLY, RESPIRATIONS REGULAR AND UNLABORED, NO S/S OF ACUTE DISTRESS.
--- NOTE | 2016-10-05 04:42 | NUR ---
ASSISTED PT TO BATHROOM AND BACK TO BED.
--- NOTE | 2016-10-05 07:46 | NUR ---
RESTING QUIETLY IN BED. EYES CLOSED. CALL LIGHT IN REACH
[2016-10-05 09:10] VITALS: BP 120/41
--- NOTE | 2016-10-05 13:43 | NUR ---
PT RESTING IN BED WITH EYES OPEN CALL LIGHT IN REACH NO PROBLEMS WILL MONITER
--- NOTE | 2016-10-05 13:44 | NUR ---
PT ASSISTED TO BATHROOM PT VOIDED ASSISTED BACK TO BED CALL LIGHT IN REACH WILL MONITER
--- NOTE | 2016-10-05 17:56 | NUR ---
PT RESTING IN BED WITH EYES OPEN CALL LIGHT IN REACH NO PROBLEMS WILL MONITER
--- NOTE | 2016-10-05 19:35 | NUR ---
PT RESTING IN BED, DENIES NEEDS. WCTM. BED LOW. CL IN REACH.
--- NOTE | 2016-10-05 21:20 | NUR ---
PT HS MEDS ADMINISTERED. PT DENIES FURTHER NEEDS. WCTM. BED LOW. CL IN REACH.
--- NOTE | 2016-10-06 01:40 | NUR ---
PT RESTING, EYES CLOSED. BED LOW. CLINR EACH. WCTM.
--- NOTE | 2016-10-06 04:07 | NUR ---
PT RESTING, EYES CLOSED. BED LOW. CLIN REACH. WCTM.
[2016-10-06 08:00] VITALS: BP 123/52
--- NOTE | 2016-10-06 08:20 | NUR ---
SITTING UP IN BED EATING BREAKFAST. CALL LIGHT IN REACH.
--- NOTE | 2016-10-06 10:30 | NUR ---
PATIENT ALERT/ORIENT. USING CALL LIGHT FOR NEEDS. OXYGEN ON AT 2L PER N/C. NO RESPITORY DISTRESS NOTED.
--- NOTE | 2016-10-06 13:50 | NUR ---
PATIENT HELPED IN SHOWER BY THIS NURSE. SET UP FOR SHOUWER DONE. PATIENT IS A MODERATE ASST WITH SHOWER. THIS NURSE HELPED PATIENT WITH WASHING AND DRYING BACK AND BUTTOM. THIS NURSE HELPED PATIEN WASH HER HAIR.
--- NOTE | 2016-10-06 17:22 | NUR ---
PATIENT HAS VISITORS IN ROOM. SITTING UP IN BED EATTING SUPPER. VOICES NO NEEDS.
--- NOTE | 2016-10-06 18:41 | NUR ---
PRN MIRALAX GIVEN FOR NO BOWEL MOVEMENT FOR THREE DAYS
--- NOTE | 2016-10-06 19:28 | NUR ---
LYING IN BED WITH TV ON AND EYES OPEN. AWAKE ALERT AND ORIENTED TIME FOUR. ABLE TO VOICE NEEDS AND DENIES ANY PAIN AT THIS TIME. CALL LIGHT AND OVERBED TABLE IN REACH.
[2016-10-06 19:47] VITALS: BP 164/66
[2016-10-07 00:30] VITALS: BP 114/56
--- NOTE | 2016-10-07 01:34 | NUR ---
RESTING IN BED WITH EYES CLOSED. NO S/S OF DISTRESS OBSERVED. HEAD OF BED AT 30 DEGREES AND O2 VIA N/C IN PLACE AT 2 LITERS.
--- NOTE | 2016-10-07 02:43 | NUR ---
RESTING IN BED WWITH EYES CLOSED. NO S/S OF DISTRESS OBSERVED. CALL LIGHT AND OVERBED TABLE IN REACH.
--- NOTE | 2016-10-07 04:13 | NUR ---
RESTING IN BED WITH EYES CLOSED. NO S/S OF DISTRESS OBSERVED.
[2016-10-07 06:26] LABS: BASOPHILS 0.4 % (0-2); EOSINOPHILS 1.6 % (0-7); HEMATOCRIT 28.7 % (36.0-48.0); HEMOGLOBIN 9.1 g/dL (12-16); IMMATURE GRANULOCYTES 0.4 % (0-5); LYMPHOCYTES 18.1 % (15-50); MCH 30.5 pg (26.0-34.0); MCHC 31.7 g/dL (31.0-37.0); MCV 96.3 fL (80.0-100.0); MEAN PLATELET VOLUME 11.8 fL (7.4-10.4); MONOCYTES 10.3 % (2-11); NEUTROPHILS 69.2 % (40-80); PLATELET COUNT 235 10x3/uL (130-400); RBC 2.98 10x6/uL (4.00-5.40); RDW 15.6 % (11.5-14.5); WBC 5.5 10x3/uL (4.8-10.8)
[2016-10-07 06:42] LABS: CALC OSMOLALITY 287 mosm/kg (275-300); CALCIUM 8.5 mg/dL (8.5-10.1); CHLORIDE - SERUM 108 mmol/L (98-107); CREATININE - SERUM 0.6 mg/dL (0.6-1.3); GLUCOSE 89 mg/dL (74-106); POTASSIUM - SERUM 3.3 mmol/L (3.5-5.1); SODIUM 143 mmol/L (136-145); UREA NITROGEN 24 mg/dL (7-18); eGFR NON AFRICAN AMERICAN > 90 mL/min (90-120)
--- NOTE | 2016-10-07 08:15 | NUR ---
PT RESTING IN BED WITH EYES OPEN EATING BREAKFAST CALL LIGHTIN REACH NO PROBLEMS WILL MONITERS
[2016-10-07 08:38] VITALS: BP 86/53
--- NOTE | 2016-10-07 17:53 | NUR ---
PT RESTING IN BED WITH EYES OPEN CALL LIGHT IN REACH EATING SUPPER TOLERATING WELL
--- NOTE | 2016-10-07 19:40 | NUR ---
IN BED, AWAKE. DENIES NEEDS.
[2016-10-07 21:50] VITALS: BP 86/53
--- NOTE | 2016-10-07 21:50 | NUR ---
ASSISTED PATIENT UP TO BR TO URINATE AND THEN BACK TO BED. ASSESSMENT NOW COMPLETE. HELD SCHEDULED LOPRESSOR 25MG FOR LOW BP OF 86/53. RIGHT CHEST DLSC CATH REMAINS PATENT TO FLUSH AND BLOOD RETURN. DENIES NEEDS. GAVE PATIENT MIRALAX 17GM IN 8 OZS WATER FOR NO BM SINCE 10/05/16.
--- NOTE | 2016-10-08 00:10 | NUR ---
RESTING IN BED ON LEFT SIDE. APPEARS COMFORTABLE.
--- NOTE | 2016-10-08 02:20 | NUR ---
TURNED FROM LEFT SIDELYING TO BACK WHILE I WAS ROUNDING. EYES CLOSED. APPEARS TO BE RESTING AT THIS TIME.
--- NOTE | 2016-10-08 05:35 | NUR ---
ASSISTED PATIENT UP TO BR TO URINATE. SAYS SHE WILL DO THERPAY IN CURRENT CLOTHING. STANDING WEIGHT IS 155 LBS 0 OZS. FLUSHED BOTH PORTS OF RIGHT DLSC CVL.
--- NOTE | 2016-10-08 06:29 | NUR ---
Nutrition Follow Up: Pt is eating 48% meal avg on a regular diet. +BM 10/04/16 - no BM x 4 days. Noted Miralax started. Wt stable. Meds and labs noted. Rec consider an appetite stimulant. Rec continue current diet. RD following.
--- NOTE | 2016-10-08 07:50 | NUR ---
UP OOB TO BATHROOM/WC.ATTENDED PER NURSE.
--- NOTE | 2016-10-08 08:15 | NUR ---
PT RESTING IN BED WITH EYES OPEN EATING BREAKFAST TOLERATING WELL WILL MONITER
[2016-10-08 09:25] VITALS: BP 101/44
--- NOTE | 2016-10-08 15:03 | NUR ---
PATIENT DISCHARGING HOME IN AM WITH FAMILY. [facility] WILL FOLLOW WITH PATIENT AT HOME. [facility] WILL DELIVER O2 TO PATIENT. [facility] (DR. MARION BAROTN), 10-16-16 @ 1:30, DR. HERNÁNDEZ 12-31-16 @ 2:45, DR. SINCLAIR 10/24/16 @ 10:30, PATIENT TO BE AT [facility] 10/24/16 @ 9:30 FOR LAB AND X-RAY THEN GO TO DR. WBEBER OFFICE. PTIENT CHOICE FORM FOR HOME HEALTH AND [facility] FORM SIGNED, EXPLAINED AND FILED IN CHART. WILL CONTINUE TO FOLLOW WITH PATIENT UNTL DISCHARGED
--- NOTE | 2016-10-08 18:21 | NUR ---
PT RESTING IN BED WITH EYES OPEN CALL LIGHT IN REACH WILL MONITER
[2016-10-08 19:05] VITALS: BP 114/91
--- NOTE | 2016-10-08 19:30 | NUR ---
ASSISTED PATIENT TO REPOSITION HIGHER UP IN BED FOR COMFORT. DENIES FURTHER NEEDS.
--- NOTE | 2016-10-08 21:00 | NUR ---
ASSESSMENT AND HS MEDS COMPLETE. GAVE PATIENT ULTRAM 50MG FOR PAIN LEVEL OF 8/10 IN LOW RIGHT CHEST BELOW LOWER RIGHT COSTAL BORDER. COMMENTS THAT SHE HAS HAD VERY LITTLE PAIN UNTIL NOW AND SEEMS VERY CONCERNED THAT SHE IS HAVING IT NOW. RIGHT THORACOTOMY INCISION AND CHEST TUBE INCISIONS ARE CLEAN, DRY, INTACT AND OPEN TO AIR. NO REDNESS OR DRAINAGE NOTED.
--- NOTE | 2016-10-08 21:30 | NUR ---
RETURNED TO ROOM TO SEE PATIENT'S ROOMMATE WHO HAD A FAMILY VISITOR @ 2100. MRS. HALL UPSET THAT SHE HAS HAD LITTLE RELIEF FROM HER PAIN AT THIS TIME. EXPLAINED THAT IT TAKES ABOUT 45 MINUTES TO START FEELING THE ANALGESIC EFFECTS OF HER TRAMADOL AND IT HAS ONLY BEEN 30 MINUTES SINCE SHE RECEIVED IT.
--- NOTE | 2016-10-08 21:50 | NUR ---
WAS CALLED AWAY FROM THE ROOM TO ASSIST WITH ANOTHER PATIENT. FOUND MRS. HALL RESTING QUIETLY WITH HER EYES CLOSED, LYING IN PARTIAL LEFT SIDE POSITION. NO APPARENT DISTRESS.
--- NOTE | 2016-10-09 00:15 | NUR ---
IN BED, AWAKE. DENIES NEEDS. SAYS SHE HAS NO PAIN AT THIS TIME, AND FEELS MUCH BETTER THAN EARLIER.
--- NOTE | 2016-10-09 02:10 | NUR ---
ASSISTED PATIENT UP TO BR COMMODE TO URINATE, AND THEN BACK TO BED. DENIES PAIN.
--- NOTE | 2016-10-09 04:45 | NUR ---
IN BED, AWAKE. DENIES NEEDS.
--- NOTE | 2016-10-09 06:05 | NUR ---
ASSISTED PATIENT UP TO BR COMMODE AND BACK TO BED. STANDING WEIGHT IS 152 LBS AND 8 OZS. DENIES NEEDS.
[2016-10-09 08:00] VITALS: BP 96/64
--- NOTE | 2016-10-09 08:00 | NUR ---
PATIENT IS ALERT/ORIENT. OXYGEN ON AT 2L PER N/C. PATIENT TO BE DISCHARGED TODAY. RSC DOUBLE LUMEN.CALL LIGHT WITHIN REACH. VOICES NO NEEDS AT THIS TIME.
--- NOTE | 2016-10-09 10:14 | NUR ---
DR. Feli COTTO INTO SEE PATIENT. DISCHARGE ORDERS RECEIVED.
--- NOTE | 2016-10-09 12:47 | NUR ---
DR. BANSAL OFFICE CALLED. DR BANSAL WAS CONSULTED FOR THIS PATIENT ON 09/17/16. DR BANSAL HAS NOT BEEN INTO SEE PATIENT. THIS NURSE TALKED TO HITESH AT DR BANSAL OFFICE. APPT MADE FOR PATIENT ON September AT DR. NIMISHA ALBARADO.
--- NOTE | 2016-10-09 12:49 | NUR ---
CENTRAL LINE PULLED FROM RIGHT TX BY Shante RODRIGUEZ RN.
--- NOTE | 2016-10-09 12:58 | NUR ---
DISCHARGE INSTUCTIONS GIVEN TO NIECE AND PATIENT. ALL PATIENTS MEDICATIONS CALLED INTO [facility] [address]. PATIENT HELPED OUT OF BUILDING BY STAFF.
--- NOTE | 2016-10-09 13:49 | NUR ---
late entry: dr. cheng appointment 10/18/16 @ 9:30, patient notified
== END 2016-10-09 13:25 | disposition home health service (06) | DRG 91 ==
LOC: D.REHAB 12:54
PROVIDERS: ADMIT Emergency Medicine
DX: G72.81 Critical illness myopathy (principal); J96.02 Acute respiratory failure with hypercapnia; C34.31 Malignant neoplasm of lower lobe, right bronchus or lung; D62 Acute posthemorrhagic anemia; R53.1 Weakness; I70.213 Atherosclerosis of native arteries of extremities with intermittent claudication, bilateral legs; I48.0 Paroxysmal atrial fibrillation; J44.9 Chronic obstructive pulmonary disease, unspecified; J45.909 Unspecified asthma, uncomplicated; D50.9 Iron deficiency anemia, unspecified

== ENCOUNTER → 2016-10-24 09:57 | Outpatient (CLI) | payer MEDICARE, BC ==
[2016-09-28 15:30] VITALS: BMI 28.5
[2016-10-24 10:28] LABS: HEMATOCRIT 37.3 % (36.0-48.0); HEMOGLOBIN 12.2 g/dL (12-16); MCH 29.6 pg (26.0-34.0); MCHC 32.7 g/dL (31.0-37.0); MCV 90.5 fL (80.0-100.0); MEAN PLATELET VOLUME 11.1 fL (7.4-10.4); RBC 4.12 10x6/uL (4.00-5.40); RDW 14.3 % (11.5-14.5); WBC 15.1 10x3/uL (4.8-10.8)
[2016-10-24 10:43] LABS: CALCIUM 9.2 mg/dL (8.5-10.1); CARBON DIOXIDE 31.1 mmol/L (21.0-32.0); POTASSIUM - SERUM 3.1 mmol/L (3.5-5.1)
== END | disposition home or self-care (01) ==
LOC: D.LAB 09:57 → D.RAD 10:15
PROVIDERS: Internal Medicine Cardiovascular Disease
DX: D64.9 Anemia, unspecified (principal); Z98.890 Other specified postprocedural states

== ENCOUNTER 2016-11-20 10:27 | Inpatient (IN) | payer MEDICARE, BC ==
[~2016-11-20] VITALS: Ht 157.5 cm; Wt 70.6 kg
--- NOTE | ~2016-11-20 | CN ---
PATIENT NAME:HARVINDER HALL MEDICAL RECORD: [id number] : [birth year] LOCATION:[facility].[id number] ADMIT DATE: 11/20/16 ACCOUNT: [id number] CONSULTING PHYSICIAN: WENDIE NICOLE MD REFERRING PHYSICIAN: SINGH SCHAFFER MD DATE OF CONSULTATION: 11/21/2016 CONSULT REQUESTING PHYSICIAN: Singh Schaffer MD REASON FOR CONSULTATION: Hypotension, possible blood loss anemia, questionable pneumonia, right lower lobe. HISTORY OF PRESENT ILLNESS: Ms. Hall is an 86-year-old very pleasant lady who has a history of squamous cell carcinoma of the lung. She underwent right lower lobe lobectomy in August 2016. The patient was doing well, but for the last few days she is feeling very weak and lethargic. She is having a cough without much significant sputum production. There is no fever or chill, no night sweats, no chest pain. REVIEW OF SYSTEMS: Mainly in the history of present illness. PAST MEDICAL HISTORY: 1. History of squamous cell carcinoma of the lung. 2. Peripheral vascular disease. 3. History of pneumonia. 4. History of dyspnea. 5. Gastroesophageal reflux disease. PAST SURGICAL HISTORY: 1. She is status post right lower lobe lobectomy secondary to squamous cell carcinoma of the lung. 2. Appendectomy. 3. Cholecystectomy. 4. Cataract surgery. 5. Shoulder surgery. ALLERGIES: There are no known drug allergies. PRESENT MEDICATIONS: On [employer] was reviewed. PERSONAL AND SOCIAL HISTORY: The patient has remote history of smoking. She is a nondrinker. FAMILY HISTORY: Significant for cancer. PHYSICAL EXAMINATION: GENERAL: Now, the patient is lying comfortably in bed. She is not in acute distress. VITAL SIGNS: The blood pressure is 84/56, pulse is 81, respirations 21, temperature 97.9, SPO2 is 97% on 2 liters nasal cannula. HEENT: Conjunctivae are pink. Sclerae nonicteric. NECK: Supple. No JVD. CHEST: There is decreased breath sound at the right base. No wheezing. There are crackles. HEART: Rhythm regular, normal sound, no murmur. CONSULT REPORT [id number] HARVINDER HALL ABDOMEN: Soft, bowel sounds present. No hepatosplenomegaly. RECTAL: Deferred. EXTREMITIES: No cyanosis, no clubbing. There is no pedal edema. SKIN: Warm, normal turgor. CENTRAL NERVOUS SYSTEM: The patient is awake and alert. There are no obvious cranial nerve abnormalities. The gait was not tested. LABORATORY DATA: CBC: WBC was 3.7, hemoglobin is 7.9, hematocrit 25.4, the platelet count is 179. Chemistry: Sodium 141, potassium 3.7, BUN is 14, creatinine 0.4. IMAGING: Chest radiograph, there is right-sided pleural effusion, elevated right hemidiaphragm, possible infiltrate. IMPRESSION: 1. Pneumonia, right lower lobe, possible community-acquired pneumonia, though the patient has recent lobectomy and hospitalization in August. 2. Right pleural effusion, compensated after the right lower lobe lobectomy. I would doubt parapneumonic. 3. Hypotension secondary to anemia. 4. History of squamous cell carcinoma of the lung. 5. Status post left lower lobe lobectomy secondary to cancer. 6. Anemia, possibly from gastrointestinal blood loss. 7. Chronic obstructive pulmonary disease without exacerbation. RECOMMENDATION: 1. We will continue Levaquin and add Zosyn, albuterol and ipratropium nebulizer p.r.n. 2. Follow up labs and chest radiograph. 3. Discussed with Dr. Schaffer. 4. We will get a GI consult. Dr. Schaffer, thank you for involving me in the care of Ms. Hall. The critical care time is 45 minutes. TRANSINT:[id number] Voice Confirmation ID: [id number] DOCUMENT ID: [id number] WENDIE NICOLE MD CC: SINGH SCHAFFER MD [id number] DICTATION DATE: 11/21/16 1301 PRODUCE TEAM LEAD: 11/21/162115 ADM IN [id number] [place] [address]
[2016-11-20 10:43] LABS: BASOPHILS 0.5 % (0-2); EOSINOPHILS 2.2 % (0-7); HEMATOCRIT 25.4 % (36.0-48.0); HEMOGLOBIN 7.9 g/dL (12-16); IMMATURE GRANULOCYTES 0.3 % (0-5); LYMPHOCYTES 16.1 % (15-50); MCH 28.4 pg (26.0-34.0); MCHC 31.1 g/dL (31.0-37.0); MCV 91.4 fL (80.0-100.0); MEAN PLATELET VOLUME 10.6 fL (7.4-10.4); MONOCYTES 11.4 % (2-11); NEUTROPHILS 69.5 % (40-80); RBC 2.78 10x6/uL (4.00-5.40); RDW 16.3 % (11.5-14.5); WBC 3.7 10x3/uL (4.8-10.8)
[2016-11-20 10:48] LABS: PLATELET COUNT 179 10x3/uL (130-400)
[2016-11-20 11:15] LABS: APPEARANCE CLEAR (CLEAR); BILIRUBIN NEGATIVE (NEGATIVE); COLOR YELLOW (YELLOW); GLUCOSE NEGATIVE (NEGATIVE); KETONE NEGATIVE (NEGATIVE); LEUKOCYTE ESTERASE NEGATIVE (NEGATIVE); NITRITE NEGATIVE (NEGATIVE); PROTEIN NEGATIVE (NEGATIVE); UROBILINOGEN NORMAL (NORMAL)
[2016-11-20 11:18] LABS: ALBUMIN 1.8 g/dL (3.4-5.0); ANION GAP 8.7 mmol/L (8-16); BILIRUBIN - TOTAL 0.29 mg/dL (0.2-1.3); CARBON DIOXIDE 30.6 mmol/L (21.0-32.0); CREATININE - SERUM 0.8 mg/dL (0.6-1.3); POTASSIUM - SERUM 4.3 mmol/L (3.5-5.1); PROTEIN - SERUM 5.3 g/dL (6.4-8.2)
[2016-11-20 11:46] LABS: INR 0.99 (0.85-1.17); PROTIME 12.9 SECONDS (11.6-15.0)
[2016-11-20 11:49] LABS: MAGNESIUM - SERUM 2.1 mg/dL (1.8-2.4); TROPONIN-I 0.016 ng/mL (0.000-0.060)
--- NOTE | 2016-11-20 19:52 | NUR ---
AWAKE, ALERT AND ORIENTED X'S 4. RECIEVING OXYGEN VIA NASAL CANNULA AT 2L/MIN. NO SIGNS OF DISTRESS NOTED. REQUESTED ANNIE CRACKER AND PEANUT BUTTER SANDWHICH AND MILK. BROUGHT HER THOSE THINGS. CALL LIGHT IN REACH. DENIES NEEDS AT THIS TIME.
[2016-11-20 20:00] VITALS: BP 111/51
[2016-11-20 21:23] VITALS: BMI 31.5
[2016-11-20 23:56] VITALS: BP 93/50
[2016-11-21] VITALS (21 sets, daily range): BP systolic 72–130; BP diastolic 51–90; Ht 157.5 cm; Wt 70.6 kg
--- NOTE | 2016-11-21 02:03 | NUR ---
WENT IN ROOM TO START UNIT OF PRBC. WOKE PATIENT UP. CHECKED V/S, BP LOW, CHECKED MANUALLY, ANOTHER NURSE CHECKED MANUALLY. BP LOW. CALLED RAPID RESPONE.
--- NOTE | 2016-11-21 02:10 | NUR ---
STARTED BLOOD TRANSFUSION AT 100ML/HR.
[2016-11-21 02:19] LABS: HEMATOCRIT 23.9 % (36.0-48.0)
[2016-11-21 02:24] LABS: HEMOGLOBIN 7.3 g/dL (12-16)
--- NOTE | 2016-11-21 02:25 | NUR ---
INCREASED RATE OF PRBC TO 125ML/HR
--- NOTE | 2016-11-21 02:40 | NUR ---
INCREASED RATE OF PRBC TO 150ML/HR
--- NOTE | 2016-11-21 03:00 | NUR ---
PT ARRIVED ON UNIT, PLACED ON MONITORS, PT IS ALERT AND ORIENTED, ON 2L NC, BLOOD INFUSING IN LEFT A/C, PT DENIES ANY NEEDS OR WANTS, WILL CON'T TO MONITOR
--- NOTE | 2016-11-21 03:16 | NUR ---
CALLED SHIRA, PATIENT'S SISTER. NOTIFIED HER THAT THE PATIENT WAS MOVED TO ICU FOR HER LOW BP.
--- NOTE | 2016-11-21 03:22 | NUR ---
UPDATE GIVEN TO DR. RIVERA, NEW ORDERS RECIEVED
--- NOTE | 2016-11-21 05:15 | NUR ---
PT RESTING AT THIS TIME, WILL CON'T TO MONITOR
[2016-11-21 05:40] LABS: BASOPHILS 0.5 % (0-2); EOSINOPHILS 2.2 % (0-7); IMMATURE GRANULOCYTES 0.7 % (0-5); LYMPHOCYTES 20.2 % (15-50); MCHC 31.3 g/dL (31.0-37.0); MEAN PLATELET VOLUME 9.9 fL (7.4-10.4); MONOCYTES 12.9 % (2-11); NEUTROPHILS 63.5 % (40-80); PLATELET COUNT 162 10x3/uL (130-400); RBC 3.29 10x6/uL (4.00-5.40); RDW 16.5 % (11.5-14.5); WBC 4.1 10x3/uL (4.8-10.8)
[2016-11-21 05:49] LABS: HEMATOCRIT 29.4 % (36.0-48.0); HEMOGLOBIN 9.2 g/dL (12-16); MCV 89.4 fL (80.0-100.0)
[2016-11-21 06:03] LABS: ALBUMIN 1.6 g/dL (3.4-5.0); ALKALINE PHOSPHATASE 60 U/L (46-116); ALT (SGPT) 20 U/L (10-68); CALCIUM 7.9 mg/dL (8.5-10.1); CARBON DIOXIDE 27.9 mmol/L (21.0-32.0); CHLORIDE - SERUM 108 mmol/L (98-107); CREATININE - SERUM 0.7 mg/dL (0.6-1.3); GLUCOSE 98 mg/dL (74-106); PHOSPHOROUS 2.6 mg/dL (2.5-4.9); POTASSIUM - SERUM 3.7 mmol/L (3.5-5.1); PROTEIN - SERUM 4.9 g/dL (6.4-8.2); SODIUM 141 mmol/L (136-145); eGFR NON AFRICAN AMERICAN 83 mL/min (90-120)
[2016-11-21 06:08] LABS: CALC OSMOLALITY 281 mosm/kg (275-300); UREA NITROGEN 14 mg/dL (7-18)
--- NOTE | 2016-11-21 07:00 | NUR ---
PT REPORT REC'D, PT CARE ASSUMED. PT [id number] SITTING UP IN BED, NO C/O PAIN, VSS, 2LNC. LEFT AC PIV WITH PRBC'S INFUSING, NO SIGNS OF INFILTRATION. BILLINGSLEY CATHETER FREE OF KINKS TO GRAVITY WITH URINE RETURN. SHIFT ASSESSMENT COMPLETED, SEE FLOW SHEET. ROOM FREE OF CLUTTER, CALL LIGHT IN REACH, WILL CONTINUE TO MONITOR PT.
--- NOTE | 2016-11-21 08:30 | NUR ---
SPOKE WITH PT'S NIECE, ZAID GALVEZ, PT AND PT'S NIECE REQUESTING THAT IF ANY CHANGES IN PT'S LOCATION, OR ANY SIGNIFICANT CHANGE WE CALL HER, , WILL ADD NUMBER TO PT'S INFORMATION.
--- NOTE | 2016-11-21 08:45 | NUR ---
PRBC'S FINISHED INFUSING, SEE FLOW SHEET, VSS, WILL CONTINUE TO MONITOR PT.
--- NOTE | 2016-11-21 09:00 | NUR ---
PT FAMILY AT THE BEDSIDE, ALL QUESTIONS ANSWERED, VSS, WILL CONTINUE TO MONITOR PT.
--- NOTE | 2016-11-21 11:00 | NUR ---
REPOSITIONED PT, PROPPED WITH PILLOWS, VSS, REASSESSMENT COMPELTED, SEE FLOW SHEET. ROOM FREE OF CLUTTER, CALL LIGHT IN REACH, WILL CONTINUE TO MONITOR PT.
--- NOTE | 2016-11-21 11:05 | NUR ---
DR. RIVERA AT THE BEDSIDE
--- NOTE | 2016-11-21 15:00 | NUR ---
PT RESTING WITH EYES CLOSED,NO C/O PAIN, VSS, REASSESSMENT COMPLETED, SEE FLOW SHEET. ROOM FREE OF CLUTTER, CALL LIGHT IN REACH, WILL CONTINUE TO MONITOR PT.
--- NOTE | 2016-11-21 15:15 | NUR ---
SITED NEW 22G PIV TO LEFT FOREARM, MOVED NS FROM LEFT AC TO LEFT FOREARM, NO SIGNS OF INFILTRATION, PTS FAMILY AT THE BEDSIDE, ALL QUESTIONS ANSWERED, WILL CONTINUE TO MONITOR PT.
--- NOTE | 2016-11-21 18:15 | NUR ---
DR. BENITEZ AT THE BEDSIDE FOR EGD
--- NOTE | 2016-11-21 19:00 | NUR ---
REPORT RECEIVED. SHIFT ASSESSMENT COMPLETED PER FLOW SHEET. PT LAYING IN BED AWAKE AND ALERT. ORIENTED TO PERSON, TIME, PLACE, AND SITUATION. S1S2 PRESENT. TELEMETRY MONITORING RATE OF 77. PERIPHERAL PULSES PALP. CAPILLARY REFILL <3 SECS UPPER AND LOWER EXTREMITIES. 6 L 02 VIA NC. GENERALIZED EDEMA IN RUE AND LUE. +2 EDEMA NOTED IN LLE AND RLE. BREATHING PATTERN SHALLOW, ENCOURAGED TO TAKE DEEP BREATHS, VERBALIZES UNDERSTANDING. RUL, RML, ERIK CLEAR. RLL AND LLL DIMINISHED BREATH SOUNDS. BS ACTIVE X4. BILLINGSLEY CATHETER IN PLACE, SECURED DRAINING CLEAR YELLOW URINE. MUCOUS MEMBRANES MOIST. SKIN WARM AND DRY. BRUISES NOTED IN BUE. REDDENED AREA IN BUTTOCKS HANNA'S BUTT PASTE APPLIED. DRYNESS NOTED TO BLE, LOTION APPLIED. NON-SKID SOCKS IN PLACE, SCD'S ON. LT AC PIV, DRESSING CDI. LT FOREARM PIV INFUSING NS AT 100 MLS/HR. BED IN LOWEST POSITION. SIDE RAILS X2. DENIES NEEDS AT THIS TIME. WILL CONTINUE TO MONITOR.
--- NOTE | 2016-11-21 20:00 | NUR ---
LAYING IN BED RESTING. DENIES NEEDS AT THIS TIME. CALL LIGHT AND BELONGINGS WITHIN REACH. WILL CONTINUE TO MONITOR.
--- NOTE | 2016-11-21 21:18 | NUR ---
MEDS GIVEN IN APPLESAUCE PER REQUEST. DENIES FURTHER NEEDS AT THIS TIME. WILL CONTINUE TO MONTIOR. BED IN LOWEST POSITION.
--- NOTE | 2016-11-21 22:40 | NUR ---
PT AIRCRAFT STRESS ANALYST LIGHT ASSISTED TO BED BIRCH. CALL LIGHT WITHIN REACH. BED IN LOWEST POSITION.
--- NOTE | 2016-11-21 22:45 | NUR ---
TEACHING PASTOR LIGHT, ASSITED OFF OF BED BIRCH. SOFT BROWN STOOL NOTED. PT NOW REQUESTING TO BE BACK ON BED BIRCH, ASSISTED HER IN TO BED BIRCH. CALL LIGHT WITHIN REACH.
--- NOTE | 2016-11-21 22:55 | NUR ---
PT FAST FOOD SHIFT LEAD LIGHT, ASSISTED OFF OF BED BIRCH, NO BOWEL MOVEMENT NOTED. DENIES FURTHER NEEDS. CALL LIGHT WITHIN REACH. BED IN LOWEST POSITION. WILL CONTINUE TO MONITOR.
--- NOTE | 2016-11-21 23:00 | NUR ---
REASSESSMENT COMPLETE PER FLOW SHEET, SEE FOR DETAILS. NO ACUTE CHANGES NOTED. BED IN LOWEST POSITION. COMPLETE BED BATH GIVEN. COMPLETE BED LINENS CHANGED. CLEAN HOSPITAL GOWN PROVIDED. DENIES FURTHER NEEDS AT THIS TIME. BED IN LOWEST POSITION. CALL LIGHT WITHIN REACH. WILL CONTINUE TO MONITOR.
[2016-11-22] VITALS (16 sets, daily range): BP systolic 92–128; BP diastolic 62–106
--- NOTE | 2016-11-22 03:00 | NUR ---
REASSESSMENT COMPLETED PER FLOW SHEET, SEE FOR DETAILS. NO ACUTE CHANGES NOTED. BED IN LOWEST POSITION. WILL CONTINUE TO MONITOR.
[2016-11-22 04:24] LABS: BASOPHILS 0.2 % (0-2); EOSINOPHILS 0 % (0-7); HEMATOCRIT 35.8 % (36.0-48.0); HEMOGLOBIN 11.4 g/dL (12-16); IMMATURE GRANULOCYTES 0.9 % (0-5); LYMPHOCYTES 16.1 % (15-50); MCH 27.7 pg (26.0-34.0); MCHC 31.8 g/dL (31.0-37.0); MCV 86.9 fL (80.0-100.0); MEAN PLATELET VOLUME 11.7 fL (7.4-10.4); MONOCYTES 8.5 % (2-11); NEUTROPHILS 74.3 % (40-80); PLATELET COUNT 153 10x3/uL (130-400); RBC 4.12 10x6/uL (4.00-5.40); RDW 16.1 % (11.5-14.5); WBC 4.6 10x3/uL (4.8-10.8)
[2016-11-22 04:33] LABS: CALC OSMOLALITY 286 mosm/kg (275-300); CALCIUM 8.1 mg/dL (8.5-10.1); CARBON DIOXIDE 23.7 mmol/L (21.0-32.0); CHLORIDE - SERUM 108 mmol/L (98-107); CREATININE - SERUM 0.6 mg/dL (0.6-1.3); GLUCOSE 107 mg/dL (74-106); POTASSIUM - SERUM 4.1 mmol/L (3.5-5.1); SODIUM 143 mmol/L (136-145); UREA NITROGEN 17 mg/dL (7-18); eGFR NON AFRICAN AMERICAN > 90 mL/min (90-120)
--- NOTE | 2016-11-22 05:40 | NUR ---
PT CUFF CUTTER LIGHT, ASSISTED TO BED BIRCH. CALL LIGHT WITHIN REACH.
--- NOTE | 2016-11-22 05:45 | NUR ---
PT TOW FEEDER LIGHT, ASSISSTED OFF OF BED BIRCH. NO BOWEL MOVEMENT NOTED. DENIES FURTHER NEEDS AT THIS TIME. WILL CONTINUE TO MONITOR.
--- NOTE | 2016-11-22 06:00 | NUR ---
BILLINGSLEY CARE COMPLETED AT THIS TIME USING BILLINGSLEY CARE WIPES.
--- NOTE | 2016-11-22 06:00 | NUR ---
NO VISITORS AT THIS TIME. DENIES NEEDS. BED IN LOWEST POSITION. CALL LIGHT WITHIN REACH. WILL CONTINUE TO MONITOR.
--- NOTE | 2016-11-22 09:00 | NUR ---
RESTING. NO DISTRESS NOTED.
--- NOTE | 2016-11-22 10:08 | NUR ---
Nutrition follow-up: Diet: Regular as tolerated PO intake ~50% of meals Labs reviewed +BM Pt s/p EGD; small hiatal hernia, gastritis, gastric ulcers found Wt: 158# RDN monitoring pts progress.
--- NOTE | 2016-11-22 11:00 | NUR ---
TRANSFER ORDERS REC'D. NO DISTRESS NOTED.
--- NOTE | 2016-11-22 13:56 | NUR ---
* Is the patient Alert and Oriented? Yes 0 * How many steps to enter\exit or inside your home? 1 0 * PCP Dr. Mitul Irving 0 * Pharmacy [facility] [address] 0 * Preadmission Environment Home Alone 0 * ADLs Partial Dependent 0 * Partial ADLs (Assistance needed) Ambulation Bathing 0 * Equipment Oxygen Rolling Walker 0 * List name and contact numbers for known caregivers / representatives who currently or will assist patient after discharge: Sister - Lorna Dobson [phone] 0 * Community resources currently utilized Home Health 0 * Please name any agencies selected above. [facility] 0 * Additional services required to return to the preadmission environment? No 0 * Can the patient safely return to the preadmission environment? Yes 0 * Has this patient been hospitalized within the prior 30 days at any hospital? No Patient Name: HARVINDER HALL Admission Status: ER Accout number: [id number] Admission Date: 11-20-2016 : 1928 Admission Diagnosis:WEAKNESS Attending: GM RIVERA Current LOS: 2 Planned Disposition: Home with Home Health Primary Insurance: MEDICARE A & B Discharge Planning Comments: CM met with patient to assess dc plans/needs. Patient states she lives alone but her sister, Lorna, has been staying with her since her lung surgery in August. She is currently on service with [facility]. She uses a walker for ambulating. At dc, she plans to return home and resume home health services with [facility]. CM will follow & assist as needed. Supervisor Cytology: Amy Brock
--- NOTE | 2016-11-22 15:00 | NUR ---
VISITOR @ BEDSIDE. NO ACUTE CHANGES IN CONDITION.
--- NOTE | 2016-11-22 18:05 | NUR ---
TRANSFERRED TO ROOM 2214 VIA WHEELCHAIR. TO BED. SIDE RAILS UP AND CALL LIGHT WITHIN REACH. ONCOMING NURSE AT BEDSIDE.
--- NOTE | 2016-11-22 18:10 | NUR ---
RECEIVED TO 2214 FROM ICU VIA . ORIENTED TO ROOM AND CALL LIGHT SYSTEM. FAMILY IN ROOM. CALL LIGHT IN REACH. WILL CONTINUE WITH PLAN OF CARE.
--- NOTE | 2016-11-22 19:56 | NUR ---
PATIENT IS AWAKE, ALERT AND ORIENTED X'S 4. SHE IS SMILING. VERY PLEASENT. SHE IS RECIEVING OXYGEN VIA NASAL CANNULA AT 2L/MIN. SHE DENIES NEEDS. SHE IS WATCHING TV. BROUGHT HER A CUP OF ICE WATER.
--- NOTE | 2016-11-22 20:50 | NUR ---
GOT PATIENT OFF OF THE BEDPAN. SHE HAD A BOWEL MOVEMENT. PUDDING TYPE CONSISTENCY. MEDIUM BROWN IN COLOR. CLEANED PATIENT UP. APPLIED BUTT PASTE TO BUTTOM. OFFERED PATIENT TO TURN. SHE REFUSED. EDUCATED HER ON TURNING EVERY 2 HOURS TO PREVENT BED SORES. HER BUTTOCKS IS RED, BLANCHING. SHE STATED "I DO NOT WANT TO TURN RIGHT NOW. I WILL LATER."
--- NOTE | 2016-11-22 23:00 | NUR ---
TURNED OFF ALL OF THE LIGHTS, PER PATIENT REQUEST. PATIENT TURNED TO HER RIGHT SIDE AND ALLOWED ME TO PUT A PILLOW BEHIND HER BACK TO ASSIST IN KEEPING HER OFF OF HER BUTTOM. SHE DENIES FURTHER NEEDS AT THIS TIME. BED IN LOWEST POSITION, CALL LIGHT IN REACH. [facility] CATHETER DRAINING TO GRAVITY.
[2016-11-23] VITALS: BP 115/62
[2016-11-23 04:00] VITALS: BP 109/82
[2016-11-23 05:19] LABS: BASOPHILS 0 % (0-2); EOSINOPHILS 0.2 % (0-7); IMMATURE GRANULOCYTES 1.7 % (0-5); MCH 27.6 pg (26.0-34.0); MCHC 31.4 g/dL (31.0-37.0); MCV 87.9 fL (80.0-100.0); MEAN PLATELET VOLUME 10.5 fL (7.4-10.4); MONOCYTES 7.5 % (2-11); NEUTROPHILS 79.6 % (40-80); RBC 3.98 10x6/uL (4.00-5.40); RDW 16.1 % (11.5-14.5); WBC 5.2 10x3/uL (4.8-10.8)
[2016-11-23 05:20] LABS: PLATELET COUNT 233 10x3/uL (130-400)
[2016-11-23 05:41] LABS: CALC OSMOLALITY 291 mosm/kg (275-300); CALCIUM 8.3 mg/dL (8.5-10.1); CARBON DIOXIDE 28.1 mmol/L (21.0-32.0); CHLORIDE - SERUM 110 mmol/L (98-107); CREATININE - SERUM 0.7 mg/dL (0.6-1.3); GLUCOSE 110 mg/dL (74-106); SODIUM 145 mmol/L (136-145); UREA NITROGEN 17 mg/dL (7-18); eGFR NON AFRICAN AMERICAN 83 mL/min (90-120)
[2016-11-23 05:45] LABS: POTASSIUM - SERUM 3.3 mmol/L (3.5-5.1)
[2016-11-23 07:23] VITALS: BP 98/68
--- NOTE | 2016-11-23 07:49 | NUR ---
PATIENT IN BED WITH IV INTACT. EYES OPEN WITH NO COMPLAINTS. DENIES ANY NEEDS AT THIS TIME. CALL LIGHT WITHIN REACH.
[2016-11-23 11:08] VITALS: BP 146/88
[2016-11-23 15:03] VITALS: BP 95/51
--- NOTE | 2016-11-23 18:48 | NUR ---
PATIENT IN BED WITH NO COMPLAINTS AT THIS TIME. IV INTACT. CALL LIGHT WITHIN REACH.
[2016-11-23 20:00] VITALS: BP 124/81
[2016-11-24] VITALS: BP 111/63
--- NOTE | 2016-11-24 03:45 | NUR ---
PATIENT HAD INCONTINENT STOOL. LIQUID, DARK BROWN. CLEANED PATIENT UP AND CHANGED HER PADS. PATIENT REQUESTED MEDICATION TO STOP DIARRHEA. SEE MAR. D/C IV FROM LEFT AC WITH CATHETER INTACT. IV TO LEFT FOREARM READILY FLUSHED AND HAS GOOD BLOOD RETURN.
[2016-11-24 04:00] VITALS: BP 129/89
--- NOTE | 2016-11-24 04:00 | NUR ---
[facility] CARE COMPLETED USING [facility] C[facility] WIPES.
--- NOTE | 2016-11-24 07:50 | NUR ---
PT AOX4 RESP EVEN AND NONLABORED PT DENIES NEEDS AT THIS TIME IV TO LEFT FOREARM PATENT AND INTACT AT THIS TIME SRX2 BED AT LOWEST SETTING CALL LIGHT WITHIN REACH WILL CONTINUE TO MONITOR
[2016-11-24 09:40] VITALS: BP 108/60
[2016-11-24 12:46] VITALS: BP 110/64
--- NOTE | 2016-11-24 14:20 | NUR ---
Rehab note- Acute Rehab order received. The patient has an appropriate acute rehab diagnosis. Spoke with the patient and she is in agreeance for acute rehab if "that's what everone agrees with". She stated she knows she is very weak an not even really able to use her RW safely at this time. Will plan to admit to [facility] Acute rehab when ready for discharge from the acute hospital. Will follow at this time. Thank you for this referral! Rona Varela RN Clinical Liaison, [facility] Rehab
[2016-11-24 16:26] VITALS: BP 114/68
--- NOTE | 2016-11-24 19:26 | NUR ---
PT IS ALLAN IIN BED WATCHING TV. SHE REQUESTED ASSISTANCE WITH LETTING HOB DOWN A BIT. VERBALIZED SHE HAS HAD SOME DIARRHEA BUT JUST TAKEN SOME MEDS AND HOPE IT SLOWS DOWN. EVEN RISE AND FALL OF CHEST, NO SIGNS OF DISTRESS, WILL CONTINUE TO MONITOR PT AND FOLLOW PLAN OF CARE
[2016-11-24 20:00] VITALS: BP 106/56
[2016-11-25] VITALS: BP 106/72
[2016-11-25 04:00] VITALS: BP 122/69
--- NOTE | 2016-11-25 04:31 | NUR ---
PT RESTING QUIETLY, EYES CLOSED. RESP EVEN, UNLABORED. NO DISTRESS NOTED. CONTINUE REMOTE RECRUITER'S PLAN OF CARE.
--- NOTE | 2016-11-25 07:10 | NUR ---
PATIENT RECEIVED IN LOW [place] POSITION RESTING QUIETLY. RESPIRATIONS EVEN AND UNLABORED. DENIES NEEDS. SIDE RAILS UP X2. BED IN LOW POSITION. CALL LIGHT IN REACH.
[2016-11-25 08:14] VITALS: BP 133/89
--- NOTE | 2016-11-25 08:37 | NUR ---
ALERT IN BED. NO SIGNS OF DISTRESS NOTED. TOLERATING BREAKFAST WITHOUT DIFFICULTY. SCHEDULED MEDICATION ADMINISTERED. SIDE RAILS UP X2. BED IN LOW POSITION. CALL LIGHT IN REACH.
--- NOTE | 2016-11-25 09:58 | NUR ---
PATIENT TO GO TO INPATIENT REHAB TODAY. IMM GIVEN CM WILL CONTINUE TO FOLLOW ANS ASSIST
--- NOTE | 2016-11-25 10:35 | NUR ---
SITTING UP IN CHAIR ALERT. NO SIGNS OF DISTRESS NOTED. SCHEDULED MEDICATION ADMINISTERED. DENIES NEEDS. GUEST PRESENT. CALL LIGHT IN REACH.
[2016-11-25 12:04] VITALS: BP 79/52
--- NOTE | 2016-11-25 14:15 | NUR ---
REPORT CALLED TO REHAB. FIDENCIO RUBIN RECEIVED REPORT.
--- NOTE | 2016-11-25 14:25 | NUR ---
PATIENT D/C TO REHAB. TRANSFERRED DOWNSTAIRS VIA WHEELCHAIR.
[2016-11-25] MEDS ORDERED: LEVOFLOXAC750 MG/150 IV (16:21)
[2016-11-25] MEDS ORDERED: ZOSYN 3.3753.375 G1 IV (16:24)
== END 2016-11-25 15:05 | DRG 190 ==
LOC: D.ER 10:27 → D.MS 17:00 → D.ICU 17:00 → D.MS 11-22 18:12
PROVIDERS: Emergency Medicine; Nurse Practitioner Family; ADMIT Family Medicine
PROC: 0T9B70Z Drainage of Bladder with Drainage Device, Via Natural or Artificial Opening (ICD-10-PCS; principal; 2016-11-20)
PROC: 0DB78ZX Excision of Stomach, Pylorus, Via Natural or Artificial Opening Endoscopic, Diagnostic (ICD-10-PCS; 2016-11-21)
DX: J44.0 Chronic obstructive pulmonary disease with (acute) lower respiratory infection (principal); J18.9 Pneumonia, unspecified organism; K25.4 Chronic or unspecified gastric ulcer with hemorrhage; G72.81 Critical illness myopathy; C34.31 Malignant neoplasm of lower lobe, right bronchus or lung; J90 Pleural effusion, not elsewhere classified; D62 Acute posthemorrhagic anemia; I95.9 Hypotension, unspecified; I48.0 Paroxysmal atrial fibrillation; K29.70 Gastritis, unspecified, without bleeding; K44.9 Diaphragmatic hernia without obstruction or gangrene; Z87.891 Personal history of nicotine dependence; J44.9 Chronic obstructive pulmonary disease, unspecified; R19.7 Diarrhea, unspecified

== ENCOUNTER 2016-11-25 13:45 | Inpatient (IN) | payer MEDICARE, BC ==
[~2016-11-25] VITALS: Ht 157.5 cm; Wt 72.6 kg
[2016-11-25 14:52] VITALS: BMI 29.3
[2016-11-25] MEDS ORDERED: LEVOFLOXAC750 MG/150 IV (16:21)
[2016-11-25] MEDS ORDERED: ZOSYN 3.3753.375 G1 IV (16:24)
[2016-11-25 20:00] VITALS: BP 132/78
[2016-11-26 07:00] VITALS: BP 141/84
[2016-11-26 07:13] LABS: BASOPHILS 0.3 % (0-2); HEMOGLOBIN 12.4 g/dL (12-16); IMMATURE GRANULOCYTES 8.5 % (0-5); LYMPHOCYTES 12.9 % (15-50); MCH 27.9 pg (26.0-34.0); MCHC 31.8 g/dL (31.0-37.0); MCV 87.6 fL (80.0-100.0); MEAN PLATELET VOLUME 10.3 fL (7.4-10.4); MONOCYTES 8.4 % (2-11); NEUTROPHILS 68.9 % (40-80); RBC 4.45 10x6/uL (4.00-5.40); RDW 15.7 % (11.5-14.5); WBC 7.9 10x3/uL (4.8-10.8)
[2016-11-26 07:22] LABS: ANION GAP 10.8 mmol/L (8-16); CALCIUM 9.3 mg/dL (8.5-10.1); CARBON DIOXIDE 30.9 mmol/L (21.0-32.0); CREATININE - SERUM 0.8 mg/dL (0.6-1.3)
[2016-11-26 07:25] LABS: PLATELET COUNT 318 10x3/uL (130-400)
[2016-11-26 07:36] LABS: POTASSIUM - SERUM 2.7 mmol/L (3.5-5.1)
[2016-11-26 09:17] VITALS: Ht 157.5 cm; Wt 72.6 kg
[2016-11-26 20:00] VITALS: BP 120/48
[2016-11-27 06:48] LABS: BASOPHILS 0.8 % (0-2); EOSINOPHILS 3.1 % (0-7); HEMATOCRIT 37.3 % (36.0-48.0); HEMOGLOBIN 11.7 g/dL (12-16); IMMATURE GRANULOCYTES 10.4 % (0-5); LYMPHOCYTES 14.2 % (15-50); MCH 28.1 pg (26.0-34.0); MCHC 31.4 g/dL (31.0-37.0); MCV 89.4 fL (80.0-100.0); MONOCYTES 8.5 % (2-11); PLATELET COUNT 276 10x3/uL (130-400); RBC 4.17 10x6/uL (4.00-5.40); RDW 16.3 % (11.5-14.5); WBC 8.8 10x3/uL (4.8-10.8)
[2016-11-27 06:59] LABS: ANION GAP 11.9 mmol/L (8-16); CARBON DIOXIDE 28.7 mmol/L (21.0-32.0); CREATININE - SERUM 0.9 mg/dL (0.6-1.3); POTASSIUM - SERUM 3.6 mmol/L (3.5-5.1)
[2016-11-27 08:01] VITALS: BP 102/62
[2016-11-27 20:00] VITALS: BP 98/45
[2016-11-28 20:15] VITALS: BP 84/48
[2016-11-29 06:31] LABS: BASOPHILS 0.6 % (0-2); HEMATOCRIT 34.1 % (36.0-48.0); HEMOGLOBIN 10.8 g/dL (12-16); LYMPHOCYTES 12.8 % (15-50); MCH 28.1 pg (26.0-34.0); MCHC 31.7 g/dL (31.0-37.0); MCV 88.8 fL (80.0-100.0); MEAN PLATELET VOLUME 10.4 fL (7.4-10.4); MONOCYTES 12.2 % (2-11); NEUTROPHILS 65.4 % (40-80); PLATELET COUNT 260 10x3/uL (130-400); RBC 3.84 10x6/uL (4.00-5.40); RDW 16.4 % (11.5-14.5)
[2016-11-29 06:50] LABS: ANION GAP 9.6 mmol/L (8-16); CALCIUM 8.5 mg/dL (8.5-10.1); CARBON DIOXIDE 29.8 mmol/L (21.0-32.0); CREATININE - SERUM 0.8 mg/dL (0.6-1.3); POTASSIUM - SERUM 3.4 mmol/L (3.5-5.1)
[2016-11-29 08:15] VITALS: BP 99/51
[2016-11-30 01:04] VITALS: BP 100/52
[2016-11-30 07:11] VITALS: BP 145/73
[2016-11-30 22:45] VITALS: BP 89/67
[2016-12-02 01:08] VITALS: BP 88/49
[2016-12-02 06:25] LABS: BASOPHILS 0.7 % (0-2); EOSINOPHILS 3.2 % (0-7); HEMATOCRIT 34.7 % (36.0-48.0); IMMATURE GRANULOCYTES 3.7 % (0-5); MCHC 31.7 g/dL (31.0-37.0); MCV 88.3 fL (80.0-100.0); MEAN PLATELET VOLUME 10.3 fL (7.4-10.4); MONOCYTES 12.1 % (2-11); NEUTROPHILS 67.3 % (40-80); RBC 3.93 10x6/uL (4.00-5.40); RDW 16.6 % (11.5-14.5); WBC 4.4 10x3/uL (4.8-10.8)
[2016-12-02 06:32] LABS: PLATELET COUNT 183 10x3/uL (130-400)
[2016-12-02 06:50] LABS: CALCIUM 8.2 mg/dL (8.5-10.1); CARBON DIOXIDE 28.8 mmol/L (21.0-32.0); CREATININE - SERUM 0.8 mg/dL (0.6-1.3)
[2016-12-02 06:53] LABS: ANION GAP 10.2 mmol/L (8-16)
[2016-12-02 07:30] VITALS: BP 96/49
[2016-12-02 20:07] VITALS: BP 122/56
[2016-12-03 08:18] VITALS: BP 87/54
[2016-12-03 23:25] VITALS: BP 88/51
[2016-12-04 09:05] VITALS: BP 106/49
--- NOTE | 2016-12-04 17:18 | RHP ---
PATIENT: HARVINDER HALL MEDICAL RECORD: [id number] ACCOUNT: [id number] LOCATION[facility] : [birth year] ADMISSION DATE: 11/25/16 REHABILITATION HISTORY AND PHYSICAL EXAMINATION POST ADMISSION PHYSICIAN EXAMINATION DATE OF ADMISSION: 11/25/2016 ADMITTING DIAGNOSIS: Critical illness myopathy. HISTORY OF PRESENT ILLNESS: The patient admitted to the inpatient rehab for critical illness myopathy. She is an 86-year-old female patient that was admitted to the acute hospital with weakness, hypotension, anemia and pneumonia. She underwent a right thoracotomy and resection of the right middle and lower lobe on September [address] Stovall secondary to right lower lobe squamous cell carcinoma. She was guiac positive in the Emergency Room. On November 21, she had an H&H of 7 and 23, was transfused with 2 units of blood. Her hypotension has resolved by intravenous fluid and blood transfusion. She underwent an EGD on November [address] Yap showing prepyloric and pyloric ulcers, most likely the source of her bleeding. She was noted to have proximal weakness requiring assistance to get up from a sitting or lying position, requiring max assist with transfers and ambulation. She is currently receiving IV antibiotic therapy, currently on O2 at 2 liters via nasal cannula and has a Maddox catheter. She is moderately independent with a cane or a rolling walker at home and was independent with her ADLs. She lives alone but her sister has been staying with her since her recent discharge from the hospital status post thoracotomy. She is currently requiring max assist for ADLs and max assist to total assist from mobility. She wants to return home to her prior level of functioning or better if there is any possibility of this. COMORBIDITIES: Include pneumonia, right pleural effusion, atelectasis, anemia, prepyloric channel ulcer, gastritis, squamous cell carcinoma, osteoarthritis, paroxysmal atrial fibrillation, thoracotomy, diarrhea and COPD. PAST MEDICAL HISTORY: Significant for numbness, vertigo sciatic nerve problems, allergies, edema, peripheral vascular disease, pneumonia, cataracts, remote history of right lung cancer. PAST SURGICAL HISTORY: Includes gallbladder surgery, cataract surgery, appendectomy. She has had left shoulder reconstruction, kyphoplasty and lobectomy. ALLERGIES: No known drug allergies. CURRENT MEDICATIONS: She is on electrolyte protocol at this time for magnesium and potassium. She is on Bumex 0.5 mg daily, tramadol 50 mg q.6 hours p.r.n., Zosyn 3.375 g IV q.8 hours, Lopressor 25 mg b.i.d., Levaquin 750 mg daily, Neurontin 300 mg t.i.d., tessalon perles 200 mg t.i.d. p.r.n. and polyethylene glycol 17 g in 8 ounces of water daily. HABITS: No current alcohol or tobacco use. FAMILY HISTORY: Noncontributory. SOCIAL HISTORY: The patient hopes to return back home and get back to her prior HISTORY AND PHYSICAL [id number] HALL,HARVINDER level of function and hopefully be able to continue to have some care from her sister. REVIEW OF SYSTEMS: GENERAL: She does complain of weakness and fatigue. HEENT: Denies cold, cough or congestion. CARDIOVASCULAR: Denies any chest pain. LUNGS: Does complain of shortness of breath. PHYSICAL EXAMINATION: VITAL SIGNS: Stable, afebrile. GENERAL: Elderly female in no acute distress, alert upon exam. HEENT: Normocephalic and atraumatic. Mucosa moist. NECK: Supple. No lymphadenopathy. LUNGS: Clear in upper [place]. HEART: Regular rate and rhythm. ABDOMEN: Benign. EXTREMITIES: No clubbing, cyanosis or edema. NEUROLOGIC: Intact. LABORATORY DATA: Her white count 7.9, H&H 12 and 39, and platelet count is 318. Her sodium is 147, potassium 2.7, BUN and creatinine of 18 and 0.8 and blood sugar was noted to be 85. ASSESSMENT: This is an 86-year-old female patient admitted to rehab with a working diagnosis of critical illness myopathy. The patient has potential to make improvement. We instituted the following multidisciplinary therapies including to, but not limited to physical, occupational, respiratory, speech, nutritional services, prosthetics and orthotics. Given her complex condition and risk for more complications, rehabilitation services cannot be provided at a low level of care such as a penitentiary facility. PLAN: 1. Admit to [facility] rehab for intensive inpatient therapy to include the following disciplines: A. Physical therapy to improve gait, all transfer skills and bed mobility to a modified independent level. B. Occupational therapy to improve activities of daily living to a modified independent level. C. Case management to assist with discharge planning and placement options. D. Nutrition to assist with nutritional needs. E. Rehabilitation nursing to assist in monitoring the patient's underlying medical conditions and to assist with any type of bowel or bladder management. 2. The patient's current medication and medical care will be continued. We will go ahead and replace her potassium, put on electrolyte protocol. 3. We will go ahead and treat her diarrhea and if any signs of C. diff arise, we will treat appropriately. TRANSINT:[id number] Voice Confirmation ID: [id number] DOCUMENT ID: [id number] ANGEL notes whether there has been none or any medical/functional change since admission: - HISTORY AND PHYSICAL [id number] HARVINDER HALL attests patient continues to be appropriate for IRF: - SAMMY COTTO MD at 1718 CC: [id number] DICTATION DATE: 11/26/16901 [employer] SALES ASSOCIATE: 11/26/16 0941 ADM IN [place] [id number] [place] [id number]
[2016-12-04 19:00] VITALS: BP 122/62
[2016-12-05 08:48] VITALS: BP 119/60
[2016-12-05 20:45] VITALS: BP 95/48
[2016-12-06 07:38] VITALS: BP 107/59
== END 2016-12-06 10:35 | disposition home health service (06) | DRG 91 ==
LOC: D.REHAB 13:45
PROVIDERS: ADMIT Emergency Medicine
DX: G72.81 Critical illness myopathy (principal); J18.9 Pneumonia, unspecified organism; J90 Pleural effusion, not elsewhere classified; J98.11 Atelectasis; D64.9 Anemia, unspecified; K25.9 Gastric ulcer, unspecified as acute or chronic, without hemorrhage or perforation; K29.70 Gastritis, unspecified, without bleeding; C80.1 Malignant (primary) neoplasm, unspecified; M19.90 Unspecified osteoarthritis, unspecified site; I48.0 Paroxysmal atrial fibrillation; J44.9 Chronic obstructive pulmonary disease, unspecified; I95.9 Hypotension, unspecified

== ENCOUNTER → 2017-02-10 08:39 | Outpatient (CLI) | payer MEDICARE, BC ==
[2016-11-26 09:17] VITALS: BMI 29.2
[~2017-02-10 08:39] MED LIST changes: +LEVOFLOXAC750 MG/150 IV; +ZOSYN 3.3753.375 G1 IV
== END | disposition home or self-care (01) ==
LOC: D.CT 08:39
DX: D50.9 Iron deficiency anemia, unspecified (principal); C34.31 Malignant neoplasm of lower lobe, right bronchus or lung

== ENCOUNTER → 2017-03-06 07:56 | Outpatient (CLI) | payer MEDICARE, BC ==
[2016-11-26 09:17] VITALS: BMI 29.2
== END | disposition home or self-care (01) ==
LOC: D.CT 07:56
DX: D50.9 Iron deficiency anemia, unspecified (principal); C34.31 Malignant neoplasm of lower lobe, right bronchus or lung

== ENCOUNTER 2017-03-06 09:20 | Emergency (ER) | payer MEDICARE, BC ==
[2016-11-26 09:17] VITALS: BMI 29.2
[2017-03-06 10:19] LABS: BASOPHILS 0.7 % (0-2); EOSINOPHILS 1.5 % (0-7); HEMATOCRIT 34.9 % (36.0-48.0); HEMOGLOBIN 11.2 g/dL (12-16); IMMATURE GRANULOCYTES 0.2 % (0-5); LYMPHOCYTES 19.2 % (15-50); MCH 28.1 pg (26.0-34.0); MCHC 32.1 g/dL (31.0-37.0); MCV 87.5 fL (80.0-100.0); MEAN PLATELET VOLUME 11.3 fL (7.4-10.4); NEUTROPHILS 66.4 % (40-80); PLATELET COUNT 207 10x3/uL (130-400); RBC 3.99 10x6/uL (4.00-5.40); RDW 16.4 % (11.5-14.5); WBC 6.1 10x3/uL (4.8-10.8)
[2017-03-06 10:33] LABS: ALBUMIN 3.1 g/dL (3.4-5.0); ALKALINE PHOSPHATASE 63 U/L (46-116); ALT (SGPT) 16 U/L (10-68); BILIRUBIN - TOTAL 0.33 mg/dL (0.2-1.3); CALC OSMOLALITY 288 mosm/kg (275-300); CALCIUM 9.2 mg/dL (8.5-10.1); CARBON DIOXIDE 27.6 mmol/L (21.0-32.0); CHLORIDE - SERUM 105 mmol/L (98-107); CREATININE - SERUM 0.9 mg/dL (0.6-1.3); GLUCOSE 107 mg/dL (74-106); POTASSIUM - SERUM 3.8 mmol/L (3.5-5.1); SODIUM 142 mmol/L (136-145); UREA NITROGEN 30 mg/dL (7-18); eGFR NON AFRICAN AMERICAN 62 mL/min (90-120)
[2017-03-06 10:43] LABS: CKMB 0.5 U/L (0.0-3.6); CREATINE KINASE 37 UL (21-215)
[2017-03-06 10:48] LABS: TROPONIN-I < 0.017 ng/mL (0.000-0.060)
== END 2017-03-06 12:11 | disposition home or self-care (01) ==
LOC: D.ER 09:20
PROVIDERS: Family Medicine
DX: R42 Dizziness and giddiness (principal); H81.10 Benign paroxysmal vertigo, unspecified ear

== ENCOUNTER 2017-04-03 08:09 | Day surgery (SDC) | payer MEDICARE, BC ==
--- NOTE | ~2017-04-03 | OP ---
PATIENT NAME: HARVINDER HALL MEDICAL RECORD: [id number] :[birth year] LOCATION:D[facility] ADMISSION DATE: SURGEON: BETINA WILLIAMSON MD DATE OF OPERATION: 04/03/2017 PREOPERATIVE DIAGNOSES: 1. Fecal impaction. 2. History of lung cancer. 3. Atrial fibrillation. POSTOPERATIVE DIAGNOSES: 1. Fecal impaction. 2. History of lung cancer. 3. Atrial fibrillation. PROCEDURE: Fecal disimpaction. SURGEON: Betina Williamson MD REPORT OF PROCEDURE: The patient was placed in lithotomy position. Inspection of the perianal region showed the patient had a large left lateral external hemorrhoid which was not inflamed and not bleeding. This was noted to not be thrombosed. A digital inspection of the anus showed the patient had a large amount of firm stool present, fecal disimpaction was performed with removal of all the stool from the patient's rectal vault. At the conclusion of this, there was no stool left in the rectal vault. The remainder of the rectal exam appeared to be normal with no signs of inflammatory changes, masses, or lesions. The perianal skin showed no sign of any infection. At this point, the surgery was concluded. COMPLICATIONS: None. CONDITION: Stable. ANESTHESIA: TIVA. BLOOD LOSS: None. TRANSINT:[id number] Voice Confirmation ID: [id number] DOCUMENT ID: [id number] BETINA WILLIAMSON MD at 0956 CC: [id number] DICTATION DATE: 04/03/17 1351 COUNTER CHECKER: 04/03/17 1424 [facility] 04/03/17 [place] [address]
[2017-04-03 08:37] LABS: HEMATOCRIT 40.5 % (36.0-48.0); HEMOGLOBIN 13.2 g/dL (12-16); LYMPHOCYTES 17.9 % (15-50); MCH 27.7 pg (26.0-34.0); MCHC 32.6 g/dL (31.0-37.0); MCV 85.1 fL (80.0-100.0); MEAN PLATELET VOLUME 11.4 fL (7.4-10.4); NEUTROPHILS 73.6 % (40-80); PLATELET COUNT 175 10x3/uL (130-400); RBC 4.76 10x6/uL (4.00-5.40); RDW 15.8 % (11.5-14.5); WBC 8.3 10x3/uL (4.8-10.8)
[2017-04-03 08:42] LABS: ALBUMIN 3.6 g/dL (3.4-5.0); ANION GAP 16.4 mmol/L (8-16); BILIRUBIN - TOTAL 0.56 mg/dL (0.2-1.3); CALCIUM 10.4 mg/dL (8.5-10.1); POTASSIUM - SERUM 3.4 mmol/L (3.5-5.1); PROTEIN - SERUM 7.8 g/dL (6.4-8.2)
[2017-04-03 09:50] LABS: APPEARANCE CLEAR (CLEAR); BILIRUBIN NEGATIVE (NEGATIVE); COLOR YELLOW (YELLOW); EPITHELIAL CELLS OCC /hpf (0-5); GLUCOSE NEGATIVE (NEGATIVE); KETONE SMALL mg/dL (NEGATIVE); NITRITE NEGATIVE (NEGATIVE); PROTEIN TRACE mg/dL (NEGATIVE); RED CELLS - URINE OCC /hpf (0-5); UROBILINOGEN NORMAL (NORMAL); WHITE CELLS - URINE 0-5 /hpf (0-5)
[2017-04-03 13:55] VITALS: BMI 29.2
== END 2017-04-03 16:01 | disposition home or self-care (01) ==
LOC: D.ER 08:09 → D.OPS 16:00
PROVIDERS: Emergency Medicine
DX: K56.41 Fecal impaction (principal); Z01.812 Encounter for preprocedural laboratory examination; Z01.810 Encounter for preprocedural cardiovascular examination

== ENCOUNTER → 2017-11-25 09:15 | Outpatient (CLI) | payer MEDICARE, BC | END | disposition home or self-care (01) | LOC: D.RAD 09:15 | DX: C34.31 Malignant neoplasm of lower lobe, right bronchus or lung (principal) ==

== ENCOUNTER → 2018-01-13 11:03 | Outpatient (CLI) | payer MEDICARE, BC | END | disposition home or self-care (01) | LOC: D.CT 11:03 | DX: C34.31 Malignant neoplasm of lower lobe, right bronchus or lung (principal) ==

== ENCOUNTER → 2018-04-20 11:22 | Outpatient (CLI) | payer MEDICARE, BC | END | disposition home or self-care (01) | LOC: D.CT 11:22 | DX: D50.9 Iron deficiency anemia, unspecified (principal); C34.31 Malignant neoplasm of lower lobe, right bronchus or lung; C79.89 Secondary malignant neoplasm of other specified sites; C79.51 Secondary malignant neoplasm of bone; D64.81 Anemia due to antineoplastic chemotherapy; D70.9 Neutropenia, unspecified; D70.1 Agranulocytosis secondary to cancer chemotherapy ==